=== PATIENT | male | born 1965 | race Caucasian/White ===

== ENCOUNTER 2021-11-05 21:34 | Inpatient (IN) | payer OTHER, SELFPAY ==
--- NOTE | ~2021-11-05 | XR_ITS ---
XR abdomen NG/feed tube insert DATE: 11/09/2021 18:47 INDICATION: NG tube placement TECHNIQUE: Portable AP view on 11/09/2021 at 1841 hours COMPARISON: 11/09/2021 KUB FINDINGS: An NG tube is present, the proximal side-port in the very lower chest, the NG tube extends only approximately 6 cm into the stomach. Advancement of the tube is recommended. Persistent small bowel gaseous distention is noted. IMPRESSION: NG tube at the very proximal stomach with proximal side-port in lower chest; advancement is recommended Reviewed, dictated and finalized at [facility]. Reviewed, dictated and finalized at location A. IMPRESSION: NG tube at the very proximal stomach with proximal side-port in low er chest; advancement is recommended
--- NOTE | ~2021-11-05 | CT_ITS ---
EXAMINATION: CT abdomen pelvis w con DATE: 11/10/2021 09:26 INDICATION: Small bowel obstruction. TECHNIQUE: Computed tomography (CT) of the abdomen and pelvis was performed with 100 mL Omnipaque 350 intravenous contrast. Automated exposure control and iterative reconstruction technique were employe d. The dose-length product was 423.67 mGy-cm. COMPARISON: CT abdomen and pelvis 11/05/2021 FINDINGS: The visualized portions of the lung bases demonstrate mild atelectasis. There are small ple ural effusions, right worse than left. The heart size is normal. No pericardial effusion. The nasogas tric tube tip is in the stomach. The liver and spleen are normal. There is wall thickening of the gal lbladder, which is normal in size. The pancreas, adrenal glands, and kidneys are normal. There are sc attered diverticula in the colon. There is wall thickening of the sigmoid colon. There is an abscess containing fluid and gas adjacent to the sigmoid colon that is contiguous with an abscess in the righ t paracolic gutter extending to the liver margin. The oblique craniocaudal extent of the abscess is 2 8.0 cm. On transaxial images, the abscess measures up to 11.6 x 8.0 cm. There is a smaller rim-enhanc ing abscess in the left paracolic gutter measuring 11.5 cm x 4.6 x 2.0 cm. There are multiple dilated loops of small bowel without focal transition point. There are no pathologically enlarged lymph node s. There is a small volume of ascites that is not organized. There are small foci of free intraperito jaiden gas adjacent to the liver dome. There is mild lumbar spondylosis. IMPRESSION: 1. Worsened perforated sigmoid diverticulitis with large abscess extending from the sigmoid colon to the liver via the right paracolic gutter. Abscess in the left paracolic gutter. 2. Dilated small bowel, consistent with adynamic ileus versus partial small bowel obstruction. 3. Small volume of ascites that is not organized. 4. Small pleural effusions. Reviewed, dictated and finalized at location A. IMPRESSION: 1. Worsened perforated sigmoid diverticulitis with large abscess extending from the sigmoid colon to the liver via the right paracolic gutter. Abscess in the left paracolic gutter. 2. Dilated small bowel, consistent with adynamic ileus versus partial small bow el obstruction. 3. Small volume of ascites that is not organized. 4. Small pleural effusions.
--- NOTE | ~2021-11-05 | CT_ITS ---
EXAMINATION: CT abdomen pelvis w con DATE: 11/05/2021 22:50 INDICATION: Lower abdominal pain with nausea TECHNIQUE: Computed tomography (CT) of the abdomen and pelvis was performed with 100 mL Omnipaque-350 intravenous contrast. Automated exposure control and iterative reconstruction technique were employe d. The dose-length product was 305.88 mGy-cm. COMPARISON: PET/CT dated 11/11/2006 FINDINGS: Unchanged 3 mm noncalcified granuloma at the anterobasilar right lower lobe. Heart size is normal. No pericardial or pleural effusion. Liver, gallbladder, pancreas, bilateral adrenal glands and left kid prema are normal. 7 mm low-attenuation right renal cyst. Edematous wall thickening at the sigmoid colon where there are multiple diverticula. 4.8 x 2.8 x 2.2 cm collection of gas and feculent material wit hout a well organized peripheral wall which appears to extend to a rupture in the wall of a large div erticulum at the sigmoid colon. There is surrounding inflammatory stranding and small amount of free fluid in the pelvis. No more remote free intraperitoneal gas. Small bowel is normal. Aspect within th e appendix which measures 8 mm in diameter. Trace fluid at the right paracolic gutter along side the appendix likely related to the inflammatory process in the pelvis with no more significant periappend iceal inflammatory stranding to suggest acute appendicitis. Bladder is normal. No pathologically enla rged abdominal or pelvic lymphadenopathy. Moderate left and severe right hip osteoarthritis. IMPRESSION: 1. Ruptured sigmoid diverticulitis with not yet organized-appearing collection of gas and feculent ma terial peripheral to a large ruptured sigmoid diverticulum. Reviewed, dictated and finalized at location A. IMPRESSION: 1. Ruptured sigmoid diverticulitis with not yet organized-appearing collection of gas and feculent material peripheral to a large ruptured sigmoid diverticulu m.
--- NOTE | ~2021-11-05 | US_ITS ---
EXAMINATION:US venous doppler LE BI INDICATION:Leg edema TECHNIQUE: Multiple grayscale, color flow and Doppler images of the right and left lower extremity de ep venous systems were obtained and reviewed. COMPARISON:No prior studies for comparison. FINDINGS: The common femoral, superficial femoral and popliteal veins demonstrate normal respiratory variation, augmentation and compressibility. Color flow is also seen within the posterior tibial, pe roneal, greater saphenous and profunda veins. IMPRESSION: 1: No lower extremity deep venous thrombosis. Reviewed, dictated and finalized at location A.
--- NOTE | ~2021-11-05 | CT_ITS ---
EXAMINATION: 1. CT guide absc cath placement 2. CT guide absc cath placement DATE: 11/10/2021 14:20 INDICATION: Intra-abdominal abscesses. TECHNIQUE: The procedure including the risks, benefits, and alternatives was discussed with the patie nt. Risks discussed included bleeding and infection. The patient understood the risks and benefits an d agreed to proceed. The patient was confirmed to be receiving appropriate antibiotic coverage. The skin overlying the abdomen was prepped and draped in usual sterile fashion. Anesthetic was administe red with 1% lidocaine subcutaneously. An 18 gauge trochar needle was inserted into the right abdomina l abscess with CT guidance. The needle was exchanged over a wire for 6 [place], 8 [place], 10 [place], a nd 12 [place]ayan dilators and then for a 14 [place] pigtail catheter. The catheter was stitched to the ski n, and a sterile dressing was applied. An 18 gauge trochar needle was inserted into the left abdominal abscess with CT guidance. The needle was exchanged over a wire for 6 [place], 8 [place], and 9 [place] dilators and then for an 8.5 [place] pi gtail catheter. The catheter was stitched to the skin, and a sterile dressing was applied. Automated exposure control and iterative reconstruction technique were employed. The dose-length product was 17 7.82 mGy-cm. There were no immediate complications. FINDINGS: CT images demonstrate the catheter within the right abdominal abscess. 10 mL fluid was aspi rated for testing. CT images demonstrate the catheter within the left abdominal abscess. IMPRESSION: 1. Successful CT-guided right abdominal abscess drainage. 2. 10 mL opaque, brown fluid was sent for aerobic and anaerobic cultures. 3. Successful CT-guided left abdominal abscess drainage. Reviewed, dictated and finalized at location A. IMPRESSION: 1. Successful CT-guided right abdominal abscess drainage. 2. 10 mL opaque, brown fluid was sent for aerobic and anaerobic cultures. 3. Successful CT-guided left abdominal abscess drainage.
--- NOTE | ~2021-11-05 | XR_ITS ---
XR chest 1V portable 11/12/2021 11:16 Indication: New cough. Generalized discomfort. Procedure: AP portable chest Comparison: No prior studies for comparison. Findings: Small bilateral pleural effusions. Bibasilar airspace disease and a represent atelectasis o r pneumonia. No pneumothorax. NG tube in the stomach. There is high density material overlying the le ft hilum, possibly aspirated barium. Impression: 1: Bibasilar airspace disease may represent atelectasis or pneumonia. 2: Small pleural effusions. Reviewed, dictated and finalized at location A. Impression: 1: Bibasilar airspace disease may represent atelectasis or pneumonia. 2: Small pleural effusions.
--- NOTE | ~2021-11-05 | XR_ITS ---
XR abdomen/kub 1V 11/08/2021 15:09 INDICATION: Abdominal bloating TECHNIQUE: KUB COMPARISON: 11/07/2021 FINDINGS: Bowel gas pattern is normal. There is no evidence of free air, mass, organomegaly, ascites or obstruction. No abnormal calculi are seen. The bones appear intact. There is moderate-severe bi lateral osteoarthritis of the hips. IMPRESSION: 1: No acute abdominal abnormality identified. Reviewed, dictated and finalized at location B.
--- NOTE | ~2021-11-05 | XR_ITS ---
EXAMINATION: XR abdomen/kub 1V DATE: 11/07/2021 12:45 INDICATION: Perforated diverticulitis. Worsening abdominal pain. TECHNIQUE: A supine view of the abdomen was obtained. COMPARISON: CT abdomen and pelvis 11/05/2021 FINDINGS: There are no dilated loops of bowel. There is a small volume of stool in the colon. IMPRESSION: 1. Normal bowel gas pattern. Reviewed, dictated and finalized at location A.
--- NOTE | ~2021-11-05 | XR_ITS ---
XR abdomen NG/feed tube rechec DATE: 11/09/2021 20:42 INDICATION: NG tube repositioning TECHNIQUE: Portable upright AP view on 11/09/2021 at 2034 hours COMPARISON: None FINDINGS: There is interval advancement of nasogastric gastric tube in the gastric fundus, the proxim al side-port approximately 10 cm distal to the diaphragmatic hiatus. Small bowel gaseous distention and air-fluid levels, suggesting adynamic ileus or small bowel obstruc tion. IMPRESSION: NG tube in gastric fundus Reviewed, dictated and finalized at [facility]. Reviewed, dictated and finalized at location A. IMPRESSION: NG tube in gastric fundus
--- NOTE | ~2021-11-05 | XR_ITS ---
XR abdomen/kub 1V DATE: 11/09/2021 17:05 INDICATION: Vomiting, abdominal bloating TECHNIQUE: 2 portable supine AP views of the abdomen and pelvis COMPARISON: 11/09/2021 KUB FINDINGS: There are are gas distended small bowel segments overlying the upper and midabdomen, measur ing up to approximately 3 cm diameter. The findings may be due to adynamic ileus or partial small bow el obstruction. No visceromegaly or apparent pneumoperitoneum. Associated as are intact. No significant abnormal calc ification. Bilateral prominent hip osteoarthritis, particularly severe on the right. IMPRESSION: Gas distended proximal and mid small bowel segments, which may be due to adynamic ileus o r partial small bowel obstruction Reviewed, dictated and finalized at [facility]. Reviewed, dictated and finalized at location A. IMPRESSION: Gas distended proximal and mid small bowel segments, which may be d ue to adynamic ileus or partial small bowel obstruction
--- NOTE | ~2021-11-05 | XR_ITS ---
XR abdomen/kub 1V 11/10/2021 05:32 Indication: Ileus. Small bowel obstruction. Procedure: AP supine portable view of the abdomen Comparison: Comparison to multiple prior studies sequentially, with oldest reviewed study dated 11/09. Findings: NG tube in the stomach. There is persistent mildly dilated small bowel, although improved s camila prior examinations. There is gas in the colon. Impression: 1: Improved small bowel dilation which may represent ileus or partial obstruction. Reviewed, dictated and finalized at location B. Impression: 1: Improved small bowel dilation which may represent ileus or partial obstructi on.
[2021-11-05 21:37] VITALS: BP 138/90; PULSE 62; RESP 18; TEMP 36.3; O2SAT 98
[2021-11-05 21:50] VITALS: PULSE 63; RESP 17; O2SAT 94
[2021-11-05 21:54] LABS: Basophils Absolute Auto 0.1 K/mm3 (0.0-0.1); Basophils Percent Auto 0.4 % (0.2-1.2); Eosinophils Percent Auto 0.1 % (0-4.4); Hematocrit 43.3 % (42.0-52.0); Hemoglobin 14.6 g/dL (14.0-18.0); Immature Granulocyte Absolute 0.11 K/mm3 (0.00-0.031); Immature Granulocyte Percent A 0.6 % (0-0.5); Lymphocytes Absolute Auto 1.21 K/mm3 (0.9-3.2); Lymphocytes Percent Auto 6.7 % (18.3-44.2); Mean Corpuscular HGB Conc 33.7 g/dl (32-36); Mean Corpuscular Hemoglobin 32.2 pg (26-34); Mean Corpuscular Volume 95.4 fl (80-100); Mean Platelet Volume 10.5 fl (7.4-10.4); Monocytes Absolute Auto 1.1 K/mm3 (0.1-0.6); Monocytes Percent Auto 6.3 % (2.6-8.5); Neutrophils Absolute Auto 15.6 K/mm3 (1.3-6.7); Neutrophils Percent Auto 85.9 % (45.5-73.1); Platelet Count Result 193 k/mm3 (150-375); Red Blood Count 4.54 M/mm3 (4.6-6.20); Red Cell Distribution Width 12.1 % (11.5-14.5); White Blood Count 18.2 K/mm3 (4.5-10.0)
--- NOTE | 2021-11-05 21:57 | ED.ABDPAIN ---
HPI - Abdominal Pain General Chief Complaint: Abdominal Pain Stated Complaint: abd pain Time Seen by Provider: 11/05/21 21:50 History of Present Illness HPI narrative: 56-year-old male presents the emergency room with acute onset of lower abdominal pain associated with nausea that started approximately 7 PM tonight. Pain is associated with bloating, and the inability to pass gas. Patient states the pain is constant, nonradiating, and describes it as cramping/throbbing. Denies diarrhea or constipation. Denies dysuria. Denies abdominal surgeries. Denies fever. Has had a colonoscopy 3 to 4 years ago and was told it was normal. Related Data Home Medications Medication Instructions Recorded Confirmed No Home Medications 11/06/21 11/06/21 Allergies Allergy/AdvReac Type Severity Reaction Status Date / Time No Known Allergies Allergy Verified 11/05/21 21:39 Review of Systems Review of Systems: CONSTITUTIONAL: Denies fever, chills, or sweats. EYES: Denies visual changes, redness, or discharge. ENT: Denies rhinorrhea, congestion, sore throat, or otalgia. CARDIOVASCULAR: Denies chest pain, palpitations, or edema. RESPIRATORY: Denies cough or dyspnea. GASTROINTESTINAL: Reports abdominal pain and nausea. GENITOURINARY: Denies dysuria or hematuria. SKIN: Denies rash or itching. MUSCULOSKELETAL: Denies back pain, joint pain, or myalgia. NEUROLOGIC: Denies headache, numbness, dizziness, or weakness. PSYCHIATRIC: Denies anxiety or depression. [facility] Social History Social History Smoking status: Never smoker Alcohol intake: current Drinks per week: 8 Substance use: never Substance use type: does not use Spiritual care concerns: No Exam Narrative: GENERAL: Well-appearing, well-nourished, and in no acute distress. HEAD: Normocephalic, atraumatic. EYES: PERRLA and EOMI. ENT: Nares clear, no rhinorrhea or epistaxis. Mucous membranes moist. NECK: Supple. No adenopathy or masses. No carotid bruits or JVD CHEST: Clear to auscultation. No respiratory distress. No wheezes rales or rhonchi HEART: Regular rate and rhythm. No murmur heard. Normal peripheral pulses. ABDOMEN: Soft, left lower quadrant tenderness, nondistended, normal active bowel sounds. EXTREMITIES: Normal range of motion. No edema. SKIN: Warm, dry, no rash. NEURO: No focal deficits. Alert and oriented x3. PSYCH: Normal mood and affect. Course Vital Signs Vital signs: Vital Signs Temperature 36.3 C L 11/05/21 21:37 Pulse Rate 62 11/05/21 21:37 Respiratory Rate 18 11/05/21 21:37 Blood Pressure 138/90 11/05/21 21:37 Pulse Oximetry 98 11/05/21 21:37 Temperature 37.1 C 11/06/21 01:15 Pulse Rate 75 11/06/21 01:15 Respiratory Rate 18 11/06/21 01:15 Blood Pressure 117/59 L 11/06/21 01:15 Pulse Oximetry 92 11/06/21 01:15 MDM - Abdominal Pain MDM Narrative Medical decision making narrative: 56-year-old male presented the emergency room with complaints of acute onset of lower abdominal pain associated with nausea vomiting. CBC shows a elevated white count at 18.2. CMP is unremarkable. CAT scan showed a sigmoid diverticulitis with and diverticular abscess measuring 3.7 to [address] Thakur he wishes to admit the patient to the hospitalist and will consult with him in the morning. IV Zosyn started. Patient is n.p.o. Differential Diagnosis Differential diagnosis: Likely diverticulitis Lab Data Attestation: I reviewed the patient's lab results. Result diagrams: 11/05/21 21:47 11/05/21 21:47 Labs: Lab Results 11/05/21 11/05/21 11/05/21 Range/Units 21:47 21:47 22:19 WBC 18.2 H (4.5-10.0) K/mm3 RBC 4.54 L (4.6-6.20) M/mm3 Hgb 14.6 (14.0-18.0) g/dL Hct 43.3 (42.0-52.0) % MCV 95.4 (80-100) fl MCH 32.2 (26-34) pg MCHC 33.7 (32-36) g/dl RDW 12.1 (11.5-14.5) % Plt Count 193 (15
[2021-11-05 22:00] VITALS: PULSE 65; RESP 17
[2021-11-05 22:03] LABS: Alanine Aminotransferase 30 U/L (4-50); Albumin Level 4.8 g/dL (3.5-5.1); Alkaline Phosphatase 87 U/L (38-126); Anion Gap 8 mmol/L (8-16); Aspartate Amino Transferase 35 U/L (17-59); Bilirubin,Total 0.9 mg/dL (0.2-1.3); Blood Urea Nitrogen 26 mg/dL (9-20); Calcium 9.1 mg/dL (8.4-10.2); Carbon Dioxide 28 mmol/L (22-30); Chloride 104 mmol/L (98-107); Estimated CRCL calculation 69 ml/min; Estimated Glomerular Filt Rate > 60; Glucose 110 mg/dL (65-110); Lipase 61 U/L (23-300); Potassium 3.8 mmol/L (3.4-5.0); Sodium 140 mmol/L (137-145)
[2021-11-05] MEDS: ONDANSETRON INJ 4 MG/2 ML VIAL IV PUSH (22:12)
[2021-11-05] MEDS: KETOROLAC 30 MG/ML VIAL (*BKC) IV PUSH (22:13)
[2021-11-05 22:15] VITALS: PULSE 65; RESP 23
[2021-11-05] MEDS: DICYCLOMINE HCL INJ 20 MG/2 ML VIAL IM (22:17)
[2021-11-05] MEDS: SODIUM CHLORIDE 0.9% IV 1,000 ML 999 ML IV CONT (22:19)
[2021-11-05 22:31] LABS: Add Urine Microscopic? YES; Appearance Urine Clear (Clear); Bilirubin Urine Negative (Negative); Blood Urine Negative (Negative); Color Urine Yellow (Yellow); Glucose Urine UA Negative (Negative); Ketones Urine Negative (Negative); Leukocyte Esterase Ur Negative LEU/UL (Negative); Mucus Urine Rare /lpf; Nitrate Urine Negative (Negative); Protein Urine Negative (Negative); RBC Urine 0-2 /hpf (0-2); Specific Grav Ur 1.028 (1.001-1.035); Urobilinogen Urine Negative mg/dL (<2.0); WBC Urine 0-3 /hpf
[2021-11-05] MEDS: MORPHINE SULFATE (*CRX) 4 MG/ML INJ IV PUSH (23:50)
[2021-11-06 00:16] LABS: Lactic Acid Reflex 0.7 mmol/L (0.7-2.1)
[2021-11-06 01:15] VITALS: BP 117/59; PULSE 75; RESP 18; TEMP 37.1; O2SAT 92; BMI 23.3
--- NOTE | 2021-11-06 01:28 | ADMGEN ---
This patient, Geoffrey Cevallos, was admitted to 3 [facility] Surg Room 327-01 at 0115. Patient/family oriented to hospital policies and general routines including ID bracelet, bed and alarms, visiting hours, pain management, procedures, bathroom and other care routines, personal items, smoking policy, room service/diet, and visiting hours. Information on how to activate the Rapid Response Team has been discussed. Patient/Family are encouraged to report perceived risks to care and to ask questions if they do not understand what they are told or what they should do.
--- NOTE | 2021-11-06 02:04 | PM.IMHP ---
H&P: HPI History of Present Illness Date/Time: 11/06/21 02:04 Chief Complaint: Abdominal pain Narrative: 56-year-old male who presents to the ED with acute onset lower abdominal pain associated with nausea that started about 6:00 p.m. last night. The pain was dull in quality crampy nonradiating constant since then initially started as a discomfort however increase in intensity subsequently and stayed persistent. The pain is maximally rated about 5 x 10 and density. He reports 2 or 3 bowel movements prior to that and had to strain. Otherwise no diarrhea or blood in stool. No urinary complaints. With persistent pain he came to the ED for evaluation. In the ED he was noted to [place] [address] abdomen with sigmoid diverticulitis with diverticular abscess measuring 3.7 x 2.6 cm. He is admitted for further evaluation and management. Review of Systems Review of Systems: - CONSTITUTIONAL: Denies weight loss, fever and chills. [place] a little feverish - HEENT: Denies changes in vision and hearing - RESPIRATORY: Denies SOB and cough. - CV: Denies palpitations and CP. - GI: Reports abdominal pain, nausea, denies vomiting and diarrhea. - : Denies dysuria and urinary frequency. - MSK: Denies myalgia and joint pain. - SKIN: Denies rash and pruritus. - NEUROLOGICAL: Denies headache and syncope. - PSYCHIATRIC: Denies recent changes in mood. Denies anxiety and depression. All systems reviewed & are unremarkable except as noted in HPI and below Endocrine: Endocrine: Reports fatigue PMFSH Social History Social History Smoking status: Never smoker Alcohol intake: current Drinks per week: 8 Substance use: never Substance use type: does not use Spiritual care concerns: No Meds Home Medications and Allergies Home Medications Medication Instructions Recorded Confirmed Type No Home Medications 11/06/21 11/06/21 History Allergies Allergy/AdvReac Type Severity Reaction Status Date / Time No Known Allergies Allergy Verified 11/05/21 21:39 Vital Signs Vital Signs - 24 hr 11/05/21 21:37 11/05/21 21:50 11/05/21 22:00 Temperature 97.3 F L Pulse Rate 62 63 65 Respiratory Rate 18 17 17 Blood Pressure 138/90 Pulse Oximetry 98 94 11/05/21 22:15 11/06/21 01:15 Temperature 98.7 F Pulse Rate 65 75 Respiratory Rate 23 H 18 Blood Pressure 117/59 L Pulse Oximetry 92 Exam Narrative: GENERAL: Well-appearing, well-nourished, and in no acute distress. HEAD: Normocephalic, atraumatic. EYES: PERRLA and EOMI. ENT: Nares clear, no rhinorrhea or epistaxis. Mucous membranes moist. NECK: Supple. No adenopathy or masses. No carotid bruits or JVD CHEST: Clear to auscultation. No respiratory distress. No wheezes rales or rhonchi HEART: Regular rate and rhythm. No murmur heard. Normal peripheral pulses. ABDOMEN: Soft, lower abdominal tenderness, nondistended, normal active bowel sounds. No guarding or rigidity EXTREMITIES: Normal range of motion. No edema. SKIN: Warm, dry, no rash. NEURO: No focal deficits. Alert and oriented x3. PSYCH: Normal mood and affect. H&P: Results Labs Labs: Short CBC 11/05/21 Range/Units 21:47 WBC 18.2 H (4.5-10.0) K/mm3 Hgb 14.6 (14.0-18.0) g/dL Hct 43.3 (42.0-52.0) % Plt Count 193 (150-375) k/mm3 BMP 11/05/21 21:47 Sodium 140 Potassium 3.8 Chloride 104 Carbon Dioxide 28 BUN 26 H Creatinine 1.10 Glucose 110 Calcium 9.1 Liver Function 11/05/21 Range/Units 21:47 Total Bilirubin 0.9 (0.2-1.3) mg/dL AST 35 (17-59) U/L ALT 30 (4-50) U/L Alkaline Phosphatase 87 (38-126) U/L Albumin 4.8 (3.5-5.1) g/dL Urine 11/05/21 Range/Units 22:19 Urine Color Yellow (Yellow) Urine Appearance Clear (Clear) Urine pH 5.0 (5.0-9.0) Ur Specific [place] 1.028 (1.001-1.035) Uri
[2021-11-06] MEDS: SODIUM CHLORIDE 0.9% IV 1,000 ML 100 ML IV CONT ×3 (02:54→20:11)
[2021-11-06] MEDS: ONDANSETRON INJ 4 MG/2 ML VIAL IV PUSH ×4 (03:03→20:12)
[2021-11-06] MEDS: MORPHINE SULFATE (*CRX) 2 MG/ML INJ IV PUSH ×5 (03:03→14:55)
[2021-11-06 06:00] VITALS: BP 108/51; PULSE 84; RESP 18; TEMP 37.3; O2SAT 90
[2021-11-06 08:21] LABS: Hematocrit 37.4 % (42.0-52.0); Hemoglobin 12.6 g/dL (14.0-18.0); Mean Corpuscular HGB Conc 33.7 g/dl (32-36); Mean Corpuscular Hemoglobin 32.4 pg (26-34); Mean Corpuscular Volume 96.1 fl (80-100); Mean Platelet Volume 10.7 fl (7.4-10.4); Platelet Count Result 149 k/mm3 (150-375); Red Blood Count 3.89 M/mm3 (4.6-6.20); Red Cell Distribution Width 12.2 % (11.5-14.5); White Blood Count 15.7 K/mm3 (4.5-10.0)
[2021-11-06 08:28] VITALS: O2SAT 91
[2021-11-06 08:30] LABS: Anion Gap 7 mmol/L (8-16); Blood Urea Nitrogen 21 mg/dL (9-20); Calcium 8.2 mg/dL (8.4-10.2); Carbon Dioxide 23 mmol/L (22-30); Chloride 107 mmol/L (98-107); Estimated CRCL calculation 69 ml/min; Estimated Glomerular Filt Rate > 60; Glucose 127 mg/dL (65-110); Potassium 3.7 mmol/L (3.4-5.0); Sodium 137 mmol/L (137-145)
--- NOTE | 2021-11-06 10:32 | PCCCNOTE ---
On 11/06/21, the student, [Stephany Saavedra ], provided care and [facility]. I have reviewed the student's documentation and agree with the findings.
--- NOTE | 2021-11-06 10:38 | PM.CNGS ---
Assessment and Plan Assessment and plan (1) Diverticulitis of large intestine with abscess: Qualifiers: Diverticulitis bleeding: unspecified bleeding status Qualified Code(s): K57.20 - Diverticulitis of large intestine with perforation and abscess without bleeding Code(s): K57.20 - Diverticulitis of large intestine with perforation and abscess without bleeding Status: Acute Assessment and Plan: CT scan reviewed and discussed with the patient and his in detail. He has evidence of acute sigmoid diverticulitis with a ruptured sigmoid diverticulum extending to a not yet organized collection of gas and feculent material measuring 4.8 x 2.8 cm. We would recommend to continue with broad-spectrum IV antibiotics, bowel rest, IV analgesics, and IV fluids. There is no organized fluid collection that would be amenable to percutaneous drainage at this time. Will continue to monitor with serial abdominal exams, labs, and additional imaging if needed. I have added scheduled IV Ibuprofen and adjusted his pain medication to help improve pain control. Will keep him NPO except ice chips today and repeat labs tomorrow morning. Thank you for allowing us to see the patient in consultation and we will continue to follow along with you. Additional Plan I have discussed the patient's case and plan of care with Dr. Thakur. History of Present Illness Consult details Consult date: 11/06/21 Reason for consult: other (Acute sigmoid diverticulitis with possible abscess) Requesting physician: Corby Spain APRN Narrative: This is a 56-year-old male with a history of lung cancer status post left lobectomy in 2007, who presented to the emergency department with complaints of lower abdominal pain. The patient reports initially noticing pain around noon yesterday. He reports the pain was initially mild and cramping in nature. He first associated it with gas pains. He also reports nausea and bloating, but no vomiting. He had had a small firm BM yesterday morning, therefore he thought he could also be constipated. He reports chills at home, but did not take his temperature. His abdominal pain progressively worsened throughout the evening and eventually prompted him to come into the ER for evaluation. In the ER, he had a CT scan of the abdomen and pelvis that was initially read by the virtual radiologist and suggested sigmoid diverticulitis with a 3.7 x 2.6 cm abscess and inflammatory fluid in the pelvis extending into the upper abdomen via the right pericolic gutter. Appendix also mention to be slightly thickened measuring 8 mm but containing gas, more likely reflecting mild reactive thickening to the adjacent fluid. The CT has since been read by our radiologist this morning and suggests ruptured sigmoid diverticulitis with not yet an organized appearing collection of gas and feculent material peripheral to a large ruptured sigmoid diverticulum. [place] [address] and lactic acid 0.7. The patient was admitted to the hospitalist service. We have been consulted by the ED provider for acute diverticulitis with possible abscess. The patient was started on IV Zosyn, IV fluids, and made NPO. Labs this morning show his white blood cell count has come down to 15,700. The patient is now seen on the medical floor. He does not feel his abdominal pain has improved much since admission. He reports his nausea has resolved. He is passing gas today, and reports his last BM was yesterday morning. He denies a history of diverticulitis in the past. He has had one colonoscopy in May of 2018 that revealed findings of diverticulosis with a benign rectal polyp. Review of Systems Review of Systems: All systems reviewed & are unremarkable except as noted in HPI and below Constitutional: Constitutional: Reports as per HPI, Reports chills, Denies fatigue and Denies fever(s) Eyes: Eyes: Reports no additional eye complaints ENT:
[2021-11-06] MEDS: IBUPROFEN IV 800 MG/200 ML 800 MG/200 ML BAG 400 MG IVPB ×3 (11:39→22:49)
[2021-11-06 14:00] VITALS: BP 118/62; PULSE 73; RESP 18; TEMP 37.1; O2SAT 92
--- NOTE | 2021-11-06 14:34 | PM.IMPN ---
Progress Note: A&P Assessment and Plan (1) Diverticulitis of large intestine with abscess: Qualifiers: Diverticulitis bleeding: unspecified bleeding status Qualified Code(s): K57.20 - Diverticulitis of large intestine with perforation and abscess without bleeding Code(s): K57.20 - Diverticulitis of large intestine with perforation and abscess without bleeding Status: Acute Assessment and Plan: Presented with lower abdominal pain and nausea CT on presentation showed ruptured sigmoid diverticulitis with not yet organized appearing collection of gas and feculent material peripheral to a large ruptured sigmoid diverticulum Appreciate general surgery consultation Continue IV Zosyn No evidence of sepsis. Patient is afebrile. Normal lactic. Bowel rest. NPO except ice chips Gentle IV fluids Supportive care. Continue IV analgesics as needed Continue with close monitoring with serial labs and abdominal exam Leukocytosis is improving. Continue to monitor. Trend CRP (2) History of lung cancer: Code(s): Z85.118 - Personal history of other malignant neoplasm of bronchus and lung Status: Inactive Assessment and Plan: Patient with history of lung cancer s/p lobectomy in 2007 No ongoing issues Subjective Date/time seen: 11/06/21 14:34 Interval history: Date of service: 11/06/2021 Geoffrey Cevallos is a 56-year-old male with a history of lung cancer s/p lobectomy who is seen in follow-up for diverticulitis with perforation and abscess. He states that he is feeling okay today. He endorses 3/10 lower abdominal pain when he is resting that increases up to 6/10 with movement. His last bowel movement was yesterday, he states this was a hard small stool. He denies diarrhea. No nausea, vomiting, fever, chills, dizziness, lightheadedness, weakness. Denies shortness of breath, cough, chest pain. Denies abdominal bloating or cramping. No swelling of his extremities. No dysuria or hematuria. He has no additional concerns at this time. Review of Systems Review of Systems: All systems reviewed & are unremarkable except as noted in HPI and below Exam Narrative: General: Well-nourished, well-appearing 56 year-old male, sitting up in bed, comfortable, NARD Neuro: awake, alert and oriented x4, speech clear, no focal neuro deficits noted HEENMT: normocephalic, atraumatic, EOMI, sclerae anicteric Respiratory: clear to auscultation bilaterally, nonlabored breathing Cardio: regular rate, regular rhythm with S1-S2 Abdomen: nondistended, normoactive bowel sounds, soft, mild tenderness to palpation across lower abdomen Extremities: no edema, erythema, or tenderness to palpation, DP pulses 2+ bilaterally Skin: no rashes or lesions, warm and dry Psych: appropriate mood and affect, judgment and insight intact Objective Data Vital Signs Vital Signs: Vital Signs - 24 hr 11/05/21 21:37 11/05/21 21:50 11/05/21 22:00 Temperature 97.3 F L Pulse Rate 62 63 65 Respiratory Rate 18 17 17 Blood Pressure 138/90 Pulse Oximetry 98 94 11/05/21 22:15 11/06/21 01:15 11/06/21 06:00 Temperature 98.7 F 99.2 F Pulse Rate 65 75 84 Respiratory Rate 23 H 18 18 Blood Pressure 117/59 L 108/51 L Pulse Oximetry 92 90 11/06/21 08:28 Temperature Pulse Rate Respiratory Rate Blood Pressure Pulse Oximetry 91 Intake/Output Intake/Output: Intake & Output 11/03/21 11/04/21 11/05/21 11/06/21 22:59 22:59 23:59 23:59 Intake Total 1350 Output Total 0 Balance 1350 Meds/Results Medications: Active Medications Generic Name Dose Route Start Last Admin Trade Name Freq PRN Reason Stop Dose Admin Piperacillin/Tazobactam/Dextrose 3.375 gm in 50 mls @ 100 mls/hr 11/06/21 06:00 11/06/21 13:11 Zosyn 3.375 Gm/D5w 50ml Pm IVPB Infused Q6H DEBBI Infusion Sodium Chloride 1,000 mls @ 100 mls/hr 11/06/21 02:15 11/06/21 12:41 Normal Saline Iv IV CONT 100 mls/hr .
[2021-11-06] MEDS: MORPHINE SULFATE (*CRX) 4 MG/ML INJ IV PUSH ×2 (20:11→22:55)
[2021-11-06 21:54] VITALS: BP 101/60; PULSE 66; RESP 16; TEMP 36.6; O2SAT 92
[2021-11-06] MEDS: LORazepam INJ (*CRX) 2 MG/ML VIAL 1 MG IV PUSH (23:13)
[2021-11-07] MEDS: HYDROmorphone HCL INJ (*CRX) 1 MG/ML SYR IV PUSH ×3 (01:07→17:09)
[2021-11-07 02:24] VITALS: O2SAT 92
[2021-11-07] MEDS: IBUPROFEN IV 800 MG/200 ML 800 MG/200 ML BAG 400 MG IVPB ×3 (05:10→18:10)
[2021-11-07 05:46] VITALS: BP 120/68; PULSE 82; RESP 16; TEMP 36.7; O2SAT 91
[2021-11-07 06:25] LABS: Hematocrit 37.7 % (42.0-52.0); Hemoglobin 12.6 g/dL (14.0-18.0); Immature Platelet Fraction Pct 6.1 % (0.9-11.2); Mean Corpuscular HGB Conc 33.4 g/dl (32-36); Mean Corpuscular Hemoglobin 33.1 pg (26-34); Mean Platelet Volume 11.3 fl (7.4-10.4); Platelet Count Result 148 k/mm3 (150-375); Red Blood Count 3.81 M/mm3 (4.6-6.20); Red Cell Distribution Width 12.3 % (11.5-14.5); White Blood Count 3.7 K/mm3 (4.5-10.0)
[2021-11-07 06:42] LABS: Anion Gap 6 mmol/L (8-16); Blood Urea Nitrogen 16 mg/dL (9-20); Calcium 8.1 mg/dL (8.4-10.2); Carbon Dioxide 26 mmol/L (22-30); Chloride 105 mmol/L (98-107); Estimated CRCL calculation 75 ml/min; Estimated Glomerular Filt Rate > 60; Glucose 105 mg/dL (65-110); Potassium 3.7 mmol/L (3.4-5.0); Sodium 137 mmol/L (137-145)
[2021-11-07 07:13] LABS: CRP 34.4 mg/dL (<1.0)
[2021-11-07 07:40] LABS: Band Neutrophils Percent 40 % (0-6); Lymphocytes Absolute Manual 0.48 K/mm3 (1.1-4.5); Metamyelocytes Percent 3 %; Monocytes Absolute Manual 0.14 K/mm3 (0.1-0.90); Monocytes Percent Manual 4 % (3-9); Neutrophils Absolute Manual 2.96 K/mm3 (1.3-6.7); Neutrophils Percent Manual 40 % (46-73); Total Cells Counted 100
[2021-11-07] MEDS: SODIUM CHLORIDE 0.9% IV 1,000 ML 100 ML IV CONT ×2 (09:24→22:42)
--- NOTE | 2021-11-07 12:39 | PM.PNGS ---
Progress Note: A&P Assessment and Plan (1) Diverticulitis of large intestine with abscess: Qualifiers: Diverticulitis bleeding: unspecified bleeding status Qualified Code(s): K57.20 - Diverticulitis of large intestine with perforation and abscess without bleeding Code(s): K57.20 - Diverticulitis of large intestine with perforation and abscess without bleeding Status: Acute Assessment and Plan: Patient continues to have abdominal pain today that is more generalized and he feels is worse. He is more distended and tender on exam today as well. Will order a KUB now Continue bowel rest, IV fluids, and IV Zosyn I adjusted his pain medication to Dilaudid to try and help improve pain control Repeat labs again tomorrow morning On the CT reading from the virtual radiologist and our Radiologist, there was a question of a small abscess versus fecal material adjacent to the sigmoid diverticulitis. Discussed with the patient that if he has fecal spillage, then he could still require surgery with the risk of an ostomy, but we will continue to try and treat with medical management and close monitoring for now. If he does not show improvement in the next 1-2 days, could also consider repeating a CT scan of the abdomen and pelvis. Additional Plan I have discussed the patient's case and plan of care with Dr. Phelps. Subjective Subjective Date/Time Seen: 11/07/21 12:39 Patient reports: still having pain, no flatus, no bowel movement and afebrile Interval history: Patient seen and examined today. He reports having two episodes of severe pain, once yesterday evening and one last night. He reports that the passed gas one time last night and the abdominal pain became more severe at that time. Since then, he has not been passing any gas and has not had a bowel movement. He reports his abdominal pain seems worse than yesterday and now is more generalized than localized to the lower abdomen. He points across his entire abdomen when specifying the location of his pain. He also reports feeling more bloated today. Denies nausea or vomiting. Review of Systems Review of Systems: All systems reviewed & are unremarkable except as noted in HPI and below Exam Const: General: no acute distress and awake Orientation/consciousness: patient oriented x3 GI: Inspection: distended GI Palp: Yes Soft to palpation, Yes Tenderness to palpation present (GI) (more diffusely tender today but still worse in lower abdomen), Yes Guarding due to palpation present (GI) (across lower abdomen) and No Rebound tenderness present Auscultation: Hypoactive bowel sounds present Neuro: General: moves all extremities and no focal motor deficits Extrem: General: normal to inspection Psych: Insight: Good insight present (Psych) Judgement: Good judgement present (Psych) Objective Data Vital Signs Vital Signs: Vital Signs - 24 hr 11/06/21 14:00 11/06/21 21:54 11/07/21 02:24 Temperature 98.8 F 97.8 F Pulse Rate 73 66 Respiratory Rate 18 16 Blood Pressure 118/62 101/60 Pulse Oximetry 92 92 92 11/07/21 05:46 Temperature 98.1 F Pulse Rate 82 Respiratory Rate 16 Blood Pressure 120/68 Pulse Oximetry 91 Intake/Output Intake/Output: Intake & Output 11/04/21 11/05/21 11/06/21 11/07/21 22:59 23:59 23:59 23:59 Intake Total 2900 1100 Output Total 250 Balance 2650 1100 Meds/Results Medications: Active Medications Generic Name Dose Route Start Last Admin Trade Name Freq PRN Reason Stop Dose Admin Hydromorphone HCl 1 mg 11/07/21 12:01 Hydromorphone Hcl Inj (*Crx) 1 Mg/Ml Syr IV PUSH Q2H PRN Pain Rated 7-10 Hydromorphone HCl 0.5 mg 11/07/21 11:59 Hydromorphone Hcl Inj (*Crx) 1 Mg/Ml Syr IV PUSH Q2H PRN Pain Rated 4-6 Piperacillin/Tazobactam/Dextrose 3.375 gm in 50 mls @ 100 mls/hr 11/06/21 06:00 11/07/21 12:03 Zosyn 3.375 Gm/D5w 50ml Pm IVPB 100 mls/hr Q6H DEBBI Administration Sodi
[2021-11-07 14:00] VITALS: BP 122/74; PULSE 85; RESP 20; TEMP 36.9; O2SAT 100
[2021-11-07 14:24] VITALS: O2SAT 92
--- NOTE | 2021-11-07 14:29 | PM.IMPN ---
Progress Note: A&P Assessment and Plan (1) Diverticulitis of large intestine with abscess: Qualifiers: Diverticulitis bleeding: unspecified bleeding status Qualified Code(s): K57.20 - Diverticulitis of large intestine with perforation and abscess without bleeding Code(s): K57.20 - Diverticulitis of large intestine with perforation and abscess without bleeding Status: Acute Assessment and Plan: Presented with lower abdominal pain and nausea CT on presentation showed ruptured sigmoid diverticulitis with not yet organized appearing collection of gas and feculent material peripheral to a large ruptured sigmoid diverticulum Appreciate general surgery consultation Continue IV Zosyn No evidence of sepsis. Patient is afebrile. Normal lactic. Bowel rest. NPO except ice chips Gentle IV fluids Supportive care. Continue IV analgesics as needed Continue with close monitoring with serial labs and abdominal exam Leukocytosis is improving. Continue to monitor. Trend CRP X-ray with normal bowel gas no signs of perforation or bowel obstruction noted 11/07/2021 (2) History of lung cancer: Code(s): Z85.118 - Personal history of other malignant neoplasm of bronchus and lung Status: Inactive Assessment and Plan: Patient with history of lung cancer s/p lobectomy in 2007 No ongoing issues Additional Plan # Leukocytosis blood cultures has been obtained in the ER. IV Zosyn. No clinical signs of sepsis. Blood culture has been negative to date # DVT prophylaxis SCDs ambulatory # code status full code Subjective Date/time seen: 11/07/21 14:29 Interval history: Geoffrey Cevallos is a 56-year-old male with a history of lung cancer s/p lobectomy who is seen in follow-up for diverticulitis with perforation and abscess. 11/07/2021: Patient had an episode of increased pain last night after he had passed gas. The pain was severe. He was not taking any pain medication and currently the pain is better since he received some pain medication. Denies any nausea vomiting. Has not had any bowel movement. Review of Systems Review of Systems: All systems reviewed & are unremarkable except as noted in HPI and below Exam Narrative: General: Well-nourished, well-appearing comfortable, NARD Neuro: awake, alert and oriented x4, speech clear, no focal neuro deficits noted HEENMT: normocephalic, atraumatic, EOMI, sclerae anicteric Respiratory: clear to auscultation bilaterally, nonlabored breathing Cardio: regular rate, regular rhythm with S1-S2 Abdomen: nondistended, normoactive bowel sounds, soft, mild tenderness to palpation across lower abdomen Extremities: no edema, erythema, or tenderness to palpation, DP pulses 2+ bilaterally Skin: no rashes or lesions, warm and dry Psych: appropriate mood and affect, judgment and insight intact Objective Data Vital Signs Vital Signs: Vital Signs - 24 hr 11/06/21 21:54 11/07/21 02:24 11/07/21 05:46 Temperature 97.8 F 98.1 F Pulse Rate 66 82 Respiratory Rate 16 16 Blood Pressure 101/60 120/68 Pulse Oximetry 92 92 91 11/07/21 14:24 Temperature Pulse Rate Respiratory Rate Blood Pressure Pulse Oximetry 92 Intake/Output Intake/Output: Intake & Output 11/04/21 11/05/21 11/06/21 11/07/21 22:59 23:59 23:59 23:59 Intake Total 2900 1550 Output Total 250 Balance 2650 1550 Meds/Results Medications: Active Medications Generic Name Dose Route Start Last Admin Trade Name Freq PRN Reason Stop Dose Admin Hydromorphone HCl 1 mg 11/07/21 12:01 Hydromorphone Hcl Inj (*Crx) 1 Mg/Ml Syr IV PUSH Q2H PRN Pain Rated 7-10 Hydromorphone HCl 0.5 mg 11/07/21 11:59 Hydromorphone Hcl Inj (*Crx) 1 Mg/Ml Syr IV PUSH Q2H PRN Pain Rated 4-6 Piperacillin/Tazobactam/Dextrose 3.375 gm in 50 mls @ 100 mls/hr 11/06/21 06:00 11/07/21 12:33 Zosyn 3.375 Gm/D5w 50ml Pm IVPB Infused Q6H [facility]fusion
[2021-11-07] MEDS: BISACODYL 10 MG SUPPOSITORY RECTAL (20:38)
[2021-11-07 21:59] VITALS: BP 111/68; PULSE 75; RESP 16; TEMP 36.5; O2SAT 97
[2021-11-08] MEDS: IBUPROFEN IV 800 MG/200 ML 800 MG/200 ML BAG 400 MG IVPB ×5 (00:22→23:09)
[2021-11-08 05:44] VITALS: BP 114/72; PULSE 74; RESP 16; TEMP 36.7; O2SAT 92
[2021-11-08 06:12] LABS: Hematocrit 34.7 % (42.0-52.0); Hemoglobin 11.7 g/dL (14.0-18.0); Mean Corpuscular HGB Conc 33.7 g/dl (32-36); Mean Corpuscular Hemoglobin 32.2 pg (26-34); Mean Corpuscular Volume 95.6 fl (80-100); Mean Platelet Volume 10.9 fl (7.4-10.4); Platelet Count Result 136 k/mm3 (150-375); Red Blood Count 3.63 M/mm3 (4.6-6.20); White Blood Count 4.9 K/mm3 (4.5-10.0)
[2021-11-08 06:25] LABS: Anion Gap 5 mmol/L (8-16); Blood Urea Nitrogen 18 mg/dL (9-20); Calcium 8.4 mg/dL (8.4-10.2); Carbon Dioxide 27 mmol/L (22-30); Chloride 104 mmol/L (98-107); Estimated CRCL calculation 69 ml/min; Estimated Glomerular Filt Rate > 60; Glucose 108 mg/dL (65-110); Potassium 3.5 mmol/L (3.4-5.0); Sodium 136 mmol/L (137-145)
[2021-11-08 06:59] LABS: Band Neutrophils Percent 17 % (0-6); Lymphocytes Absolute Manual 0.29 K/mm3 (1.1-4.5); Metamyelocytes Percent 1 %; Monocytes Absolute Manual 0.14 K/mm3 (0.1-0.90); Monocytes Percent Manual 3 % (3-9); Neutrophils Absolute Manual 4.41 K/mm3 (1.3-6.7); Neutrophils Percent Manual 73 % (46-73); Total Cells Counted 100
[2021-11-08 07:01] LABS: Anisocytosis 1+ (NORMAL); Poikilocytosis 1+ (NORMAL)
[2021-11-08] MEDS: polyethylene glycoL 3350 17 GM POWD.PACK PO ×2 (09:46→16:55)
[2021-11-08] MEDS: BISACODYL 10 MG SUPPOSITORY RECTAL ×2 (09:47→16:56)
[2021-11-08] MEDS: SODIUM CHLORIDE 0.9% IV 1,000 ML 100 ML IV CONT (09:52)
--- NOTE | 2021-11-08 10:27 | PM.PNGS ---
Progress Note: A&P Assessment and Plan (1) Diverticulitis of large intestine with abscess: Qualifiers: Diverticulitis bleeding: unspecified bleeding status Qualified Code(s): K57.20 - Diverticulitis of large intestine with perforation and abscess without bleeding Code(s): K57.20 - Diverticulitis of large intestine with perforation and abscess without bleeding Status: Acute Assessment and Plan: Abdominal pain improved today. WBC remains normal and he has been afebrile. He is also less tender on exam today. Main complaint is bloating. KUB yesterday showed a normal bowel gas pattern and no free intraperitoneal air. No BM since admission, even after dulcolax supp yesterday. Will start Miralax and give another dulcolax supp today. Continue clear liquids Continue IV Zosyn Repeat labs tomorrow Additional Plan I have discussed the patient's case and plan of care with Dr. Phelps. Subjective Subjective Date/Time Seen: 11/08/21 10:00 Patient reports: feels better, pain is less, tolerating liquids well, voiding w/o difficulty, no flatus, no bowel movement and afebrile Interval history: Patient seen and examined. He states his abdominal pain is still throughout his entire abdomen, but improved from yesterday. He is still feeling bloated and reports most of his abdominal discomfort is from the bloating. He denies nausea or vomiting. He denies any flatus or BM since his dulcolax suppository yesterday. Review of Systems Review of Systems: All systems reviewed & are unremarkable except as noted in HPI and below Exam Const: General: no acute distress and awake Orientation/consciousness: patient oriented x3 GI: Inspection: distended and no visible herniation GI Palp: Yes Soft to palpation, Yes Tenderness to palpation present (GI) (tender across lower abd, less tender today), No Guarding due to palpation present (GI) and No Rebound tenderness present Auscultation: Hypoactive bowel sounds present (very hypoactive) Neuro: General: moves all extremities and no focal motor deficits Extrem: General: normal to inspection Psych: Insight: Good insight present (Psych) Judgement: Good judgement present (Psych) Objective Data Vital Signs Vital Signs: Vital Signs - 24 hr 11/07/21 14:00 11/07/21 14:24 11/07/21 21:59 Temperature 98.4 F 97.7 F Pulse Rate 85 75 Respiratory Rate 20 16 Blood Pressure 122/74 111/68 Pulse Oximetry 100 92 97 11/08/21 05:44 Temperature 98.0 F Pulse Rate 74 Respiratory Rate 16 Blood Pressure 114/72 Pulse Oximetry 92 Intake/Output Intake/Output: Intake & Output 11/05/21 11/06/21 11/07/21 11/08/21 23:59 23:59 23:59 23:59 Intake Total 2900 3340 2500 Output Total 250 1400 Balance 2650 1940 2500 Meds/Results Medications: Active Medications Generic Name Dose Route Start Last Admin Trade Name Freq PRN Reason Stop Dose Admin Bisacodyl 10 mg 11/07/21 19:27 11/08/21 09:47 Bisacodyl 10 Mg Suppository RECTAL 10 mg QAM PRN Administration Constipation Hydromorphone HCl 1 mg 11/07/21 12:01 11/07/21 17:09 Hydromorphone Hcl Inj (*Crx) 1 Mg/Ml Syr IV PUSH 1 mg Q2H PRN Administration Pain Rated 7-10 Hydromorphone HCl 0.5 mg 11/07/21 11:59 Hydromorphone Hcl Inj (*Crx) 1 Mg/Ml Syr IV PUSH Q2H PRN Pain Rated 4-6 Piperacillin/Tazobactam/Dextrose 3.375 gm in 50 mls @ 100 mls/hr 11/06/21 06:00 11/08/21 07:35 Zosyn 3.375 Gm/D5w 50ml Pm IVPB Infused Q6H DEBBI Infusion Sodium Chloride 1,000 mls @ 100 mls/hr 11/06/21 02:15 11/08/21 09:52 Normal Saline Iv IV CONT 100 mls/hr .Q10H DEBBI Administration Ibuprofen 800 mg in 200 mls @ 400 mls/hr 11/06/21 10:45 11/08/21 07:35 Caldolor 800 Mg/200 Ml IVPB Infused Q6HR DEBBI Infusion Acetaminophen 1,000 mg in 100 mls @ 400 mls/hr 11/07/21 11:59 11/07/21 20:55 Ofirmev 1,000 Mg Ivpb IVPB 11/08/21 11:58 Infused Q6H PRN Infusion Pain Rated 1-3
--- NOTE | 2021-11-08 10:39 | PC.NURSE ---
To GI Lab per [ shiver], IV [ locked]. Report given to [Natali ].
[2021-11-08] MEDS: ONDANSETRON INJ 4 MG/2 ML VIAL IV PUSH (13:36)
[2021-11-08 13:40] VITALS: BP 135/76; PULSE 96; RESP 16; TEMP 37.1; O2SAT 94
--- NOTE | 2021-11-08 14:42 | PM.IMPN ---
Progress Note: A&P Assessment and Plan (1) Diverticulitis of large intestine with abscess: Qualifiers: Diverticulitis bleeding: unspecified bleeding status Qualified Code(s): K57.20 - Diverticulitis of large intestine with perforation and abscess without bleeding Code(s): K57.20 - Diverticulitis of large intestine with perforation and abscess without bleeding Status: Acute Assessment and Plan: Presented with lower abdominal pain and nausea CT on presentation showed ruptured sigmoid diverticulitis with not yet organized appearing collection of gas and feculent material peripheral to a large ruptured sigmoid diverticulum Appreciate general surgery consultation Continue IV Zosyn No evidence of sepsis. Patient is afebrile. WBC has normalized. Normal lactic. Continue clear liquid diet Supportive care. Continue IV analgesics as needed Trend CRP Abdominal x-ray showed normal bowel gas pattern on 11/07 There was evidence of small volume of stool in the colon on x-ray. Patient has not had a bowel movement despite Dulcolax suppository. Repeat suppository and start MiraLax per General surgery recommendations Given patient's increased bloating and discomfort, will repeat KUB this afternoon (2) Bacteremia: Code(s): R78.81 - Bacteremia Status: Acute Assessment and Plan: 1 of 2 preliminary blood cultures with growth of Bacteroides vulgatus As above, no evidence for sepsis Continue IV Zosyn Await final blood culture results (3) History of lung cancer: Code(s): Z85.118 - Personal history of other malignant neoplasm of bronchus and lung Status: Inactive Assessment and Plan: Patient with history of lung cancer s/p lobectomy in 2007 No ongoing issues Subjective Date/time seen: 11/08/21 14:42 Interval history: Date of service: 11/08/2021 Geoffrey Cevallos is a 56-year-old male with a history of lung cancer s/p lobectomy who is seen in follow-up for diverticulitis with perforation and abscess. His is at the bedside with him. States he is not feeling very well this afternoon. He was feeling well this morning was able to tolerate clear liquids for breakfast however this afternoon he noticed increase bloating and became nauseous with complaints of chills. Denied fevers or sweats. Reported a poor appetite. He has not been able to pass gas. He has been getting up and ambulating about the room. He denies dizziness, lightheadedness, weakness. No shortness breath, cough, or chest pain. He feels that his ankles appear distal little bit swollen today. He has no additional concerns. I re-evaluated the patient later this afternoon and he was starting to feel a bit better. His nausea had subsided with antiemetics. He was still complaining of bloating but it was not as significant. Review of Systems Review of Systems: All systems reviewed & are unremarkable except as noted in HPI and below Exam Narrative: General: Well-nourished, well-appearing comfortable, NARD Neuro: awake, alert and oriented x4, speech clear, no focal neuro deficits noted HEENMT: normocephalic, atraumatic, EOMI, sclerae anicteric Respiratory: clear to auscultation bilaterally, nonlabored breathing Cardio: regular rate, regular rhythm with S1-S2 Abdomen: Protuberant, hypoactive bowel sounds, firm, mild tenderness to palpation across lower abdomen Extremities: no edema, erythema, or tenderness to palpation, DP pulses 2+ bilaterally Skin: no rashes or lesions, warm and dry Psych: appropriate mood and affect, judgment and insight intact Objective Data Vital Signs Vital Signs: Vital Signs - 24 hr 11/07/21 21:59 11/08/21 05:44 11/08/21 13:40 Temperature 97.7 F 98.0 F 98.7 F Pulse Rate 75 74 96 Respiratory Rate 16 16 16 Blood Pressure 111/68 114/72 135/76 Pulse Oximetry 97 92 94 Intake/Output Intake/Output: Intake & Output 11/05/21 11/06/21 11/07/21 11/08/21 23:
[2021-11-08 21:02] VITALS: O2SAT 93
[2021-11-08] MEDS: HYDROmorphone HCL INJ (*CRX) 1 MG/ML SYR IV PUSH (21:33)
[2021-11-08 21:35] VITALS: BP 141/80; PULSE 81; RESP 16; TEMP 36.5; O2SAT 94
[2021-11-08] MEDS: SODIUM CHLORIDE 0.9% IV 1,000 ML 70 ML IV CONT (23:52)
[2021-11-09] MEDS: HYDROmorphone HCL INJ (*CRX) 1 MG/ML SYR IV PUSH (02:21)
[2021-11-09] MEDS: IBUPROFEN IV 800 MG/200 ML 800 MG/200 ML BAG 400 MG IVPB (05:22)
[2021-11-09 05:57] VITALS: BP 110/70; PULSE 78; RESP 18; TEMP 36.5; O2SAT 91
[2021-11-09 06:50] LABS: Hematocrit 34.1 % (42.0-52.0); Hemoglobin 11.2 g/dL (14.0-18.0); Mean Corpuscular HGB Conc 32.8 g/dl (32-36); Mean Corpuscular Hemoglobin 31.3 pg (26-34); Mean Corpuscular Volume 95.3 fl (80-100); Mean Platelet Volume 10.8 fl (7.4-10.4); Platelet Count Result 153 k/mm3 (150-375); Red Blood Count 3.58 M/mm3 (4.6-6.20); Red Cell Distribution Width 11.9 % (11.5-14.5); White Blood Count 7.4 K/mm3 (4.5-10.0)
[2021-11-09 07:29] LABS: Anion Gap 5 mmol/L (8-16); Blood Urea Nitrogen 15 mg/dL (9-20); CRP 32.9 mg/dL (<1.0); Calcium 8.2 mg/dL (8.4-10.2); Carbon Dioxide 28 mmol/L (22-30); Chloride 104 mmol/L (98-107); Estimated CRCL calculation 75 ml/min; Estimated Glomerular Filt Rate > 60; Glucose 111 mg/dL (65-110); Potassium 3.2 mmol/L (3.4-5.0); Sodium 137 mmol/L (137-145)
[2021-11-09 07:55] LABS: Alanine Aminotransferase 20 U/L (4-50); Albumin Level 2.8 g/dL (3.5-5.1); Alkaline Phosphatase 95 U/L (38-126); Aspartate Amino Transferase 30 U/L (17-59); Bilirubin Direct 0.2 mg/dL (0-0.3); Bilirubin,Total 2.1 mg/dL (0.2-1.3)
[2021-11-09] MEDS: polyethylene glycoL 3350 17 GM POWD.PACK PO ×2 (08:21→16:24)
[2021-11-09] MEDS: BISACODYL 10 MG SUPPOSITORY RECTAL (08:21)
--- NOTE | 2021-11-09 09:09 | PM.PNGS ---
Progress Note: A&P Assessment and Plan (1) Diverticulitis of large intestine with abscess: Qualifiers: Diverticulitis bleeding: unspecified bleeding status Qualified Code(s): K57.20 - Diverticulitis of large intestine with perforation and abscess without bleeding Code(s): K57.20 - Diverticulitis of large intestine with perforation and abscess without bleeding Status: Acute Assessment and Plan: Abdominal pain improved today. WBC remains normal and he has been afebrile. He is also less tender on exam today, but still slightly bloated. Main complaint is bloating. KUB yesterday showed a normal bowel gas pattern and no free intraperitoneal air. Will continue Miralax and give another dulcolax supp today. Advanced to full liquids today and have dietitian discuss low-fiber diet with patient. (He will convert to a high-fiber diet after he finished his course of antibiotics and sees me as an outpatient). Continue IV Zosyn until just before going home. We will add metronidazole po today to see how he tolerates it. (planning then on discharge to go with Levaquin and metronidazole.) Potassium slightly low so will supplement p.o.. Will see how patient tolerates advancement of diet. Get dietitian consult for dietary instruction and then hopefully plan to discharge after breakfast tomorrow if doing well with decreased pain. (Have ordered p.o. pain medication and stopped Dilaudid). Subjective Subjective Date/Time Seen: 11/09/21 09:09 Patient is sitting up in bed when I entered the room. States that his pain is improved. The last time he took IV pain medicine was 9:30 p.m. last night. He has been up walking the halls. Still has not had a bowel movement other than a small amount of semi-liquid stool after 1 of the Dulcolax suppositories. Tolerating clear liquids okay. States he still feels somewhat bloated. Review of Systems Review of Systems: All systems reviewed & are unremarkable except as noted in HPI and below Constitutional: Constitutional: Reports as per HPI, Reports chills, Denies fatigue and Denies fever(s) Eyes: Eyes: Reports no additional eye complaints ENT: Reports system reviewed and no additional complaints, except as documented Cardiovascular: Cardiovascular: Reports no additional cardiovascular complaints, Denies chest pain, Denies leg edema and Denies dyspnea Respiratory: Respiratory: Reports no additional respiratory complaints, Denies cough and Denies dyspnea Gastrointestinal: Gastrointestinal: Reports as per HPI, Reports abdominal pain (Mild, controlled with ibuprofen.), Denies nausea and Denies vomiting Genitourinary: Genitourinary: Reports no additional male genitourinary complaints and Denies dysuria Musculoskeletal: Musculoskeletal: Reports no additional musculoskeletal complaints, Denies joint swelling, Denies numbness and Denies tingling Neurologic: Reports system reviewed and no additional complaints, except as documented, Denies focal weakness, Denies numbness and Denies tingling Psychiatric: Psychiatric: Denies anxiety and Denies depression Endocrine: Endocrine: Denies fatigue Exam Const: General: comfortable, no acute distress, alert and awake Nutritional Appearance: average body habitus Orientation/consciousness: patient oriented x3 HENMT: Head: normocephalic and atraumatic Ears: hearing grossly normal bilaterally and external ears normal Mouth: Yes moist mucous membranes Eyes: General: appearance normal, both eyes and all related structures Sclera: sclerae normal Pupils: Equal, round and reactive pupils present EOM: EOMs intact bilaterally Neck: Neck: normal visual inspection and full ROM Resp: Effort & Inspection: no respiratory distress Auscultation: clear to auscultation bilaterally Cardio: Rate: regular rate Rhythm: regular rhythm Heart sounds: S1 normal heart sound present and S2 normal heart sound present GI: Inspection: normal to inspection, distended, n
[2021-11-09] MEDS: POTASSIUM CHLORIDE 20 MEQ TABLET 40 MEQ PO (09:25)
--- NOTE | 2021-11-09 11:33 | PM.IMPN ---
Progress Note: A&P Assessment and Plan (1) Diverticulitis of large intestine with abscess: Qualifiers: Diverticulitis bleeding: unspecified bleeding status Qualified Code(s): K57.20 - Diverticulitis of large intestine with perforation and abscess without bleeding Code(s): K57.20 - Diverticulitis of large intestine with perforation and abscess without bleeding Status: Acute Assessment and Plan: Presented with lower abdominal pain and nausea CT on presentation showed ruptured sigmoid diverticulitis with not yet organized appearing collection of gas and feculent material peripheral to a large ruptured sigmoid diverticulum Appreciate general surgery consultation Continue IV Zosyn P.o. Flagyl added today per General surgery No evidence of sepsis. Patient is afebrile. WBC has normalized. Normal lactic. Advanced to full liquid diet Supportive care. P.o. analgesics and antiemetics available as needed Abdominal x-ray showed normal bowel gas pattern on 11/07 There was evidence of small volume of stool in the colon on x-ray. Patient has not had a bowel movement during admission. Continue MiraLax and Dulcolax suppository (2) Bacteremia: Code(s): R78.81 - Bacteremia Status: Acute Assessment and Plan: 1 of 2 preliminary blood cultures with growth of Bacteroides vulgatus As above, no evidence for sepsis Continue IV Zosyn Routine susceptibility not performed (3) History of lung cancer: Code(s): Z85.118 - Personal history of other malignant neoplasm of bronchus and lung Status: Inactive Assessment and Plan: Patient with history of lung cancer s/p lobectomy in 2007 No ongoing issues Subjective Date/time seen: 11/09/21 11:33 Interval history: Date of service: 11/09/2021 Geoffrey Cevallos is a 56-year-old male with a history of lung cancer s/p lobectomy who is seen in follow-up for diverticulitis with perforation and abscess. He is not feeling well. He states that he is having ?a bad spell right now that has been going on for about half an hour. He states that his abdominal bloating continues to increase in he feels that it is ?going to explode.? He rates his pain as 5/10. This morning he was feeling better and he was able to tolerate liquids including apple juice, broth, and water. He was also able to walk around the hallways for a while. Now he feels too full to take anything in. He cannot take a deep breath due to the bloating. He denies fevers or chills but does endorse feeling a bit shaky. No nausea at this time. No vomiting. Has not had a bowel movement. He has no additional concerns. Review of Systems Review of Systems: All systems reviewed & are unremarkable except as noted in HPI and below Exam Narrative: General: Well-nourished 56-year-old male, sitting in a chair, appears slightly uncomfortable, NARD Neuro: awake, alert and oriented x4, speech clear, no focal neuro deficits noted HEENMT: normocephalic, atraumatic, EOMI, sclerae anicteric Respiratory: clear to auscultation bilaterally, nonlabored breathing Cardio: regular rate, regular rhythm with S1-S2 Abdomen: Protuberant, hypoactive bowel sounds, firm, mild tenderness to palpation across lower abdomen Extremities: no edema, erythema, or tenderness to palpation, DP pulses 2+ bilaterally Skin: no rashes or lesions, warm and dry Psych: appropriate mood and affect, judgment and insight intact Objective Data Vital Signs Vital Signs: Vital Signs - 24 hr 11/08/21 13:40 11/08/21 21:02 11/08/21 21:35 Temperature 98.7 F 97.7 F Pulse Rate 96 81 Respiratory Rate 16 16 Blood Pressure 135/76 141/80 H Pulse Oximetry 94 93 94 11/09/21 05:57 Temperature 97.7 F Pulse Rate 78 Respiratory Rate 18 Blood Pressure 110/70 Pulse Oximetry 91 Intake/Output Intake/Output: Intake & Output 11/06/21 11/07/21 11/08/21 11/09/21 23:59 23:59 23:59 23:59 Intake Total 2900 33
[2021-11-09] MEDS: HYDROcodone/acetaminophen (*CRX) 5-325 MG TABLET 1 TAB PO (12:01)
[2021-11-09] MEDS: ONDANSETRON INJ 4 MG/2 ML VIAL IV PUSH (12:01)
[2021-11-09] MEDS: IBUPROFEN 600 MG TABLET PO (12:01)
[2021-11-09 13:47] VITALS: BP 136/89; PULSE 89; RESP 18; TEMP 36.6; O2SAT 95
--- NOTE | 2021-11-09 14:21 | PC.NURSE ---
pt's , Susan, came to the nurses' station wanting an update on pt. Pt also called down at the same time stating he was having uncontrollable pain and it was increasing. I had administered everything available to him approximately 1 hour prior and there was nothing else available for 4+ hours. I contacted the hospitalist, Laverne Dominique, and informed her of this and she directed to call Dr. Phelps regarding the pain control plan. I contacted Dr. Phelps's off and was informed that ARMINDA Agustin was on the floor so their office would reach her and have her speak with the pt.
[2021-11-09] MEDS: SODIUM CHLORIDE 0.9% IV 1,000 ML 70 ML IV CONT (16:22)
[2021-11-09] MEDS: MORPHINE SULFATE (*CRX) 2 MG/ML INJ IV PUSH ×4 (16:23→22:43)
[2021-11-09] MEDS: METOCLOPRAMIDE HCL 5 MG TABLET PO (16:24)
[2021-11-09] MEDS: metroNIDAZOLE 250 MG TABLET 500 MG PO (16:24)
[2021-11-09] MEDS: PANTOPRAZOLE SODIUM IV 40 MG VIAL IV PUSH (21:32)
[2021-11-09 21:58] VITALS: BP 149/86; PULSE 91; RESP 16; TEMP 37.7; O2SAT 92
--- NOTE | 2021-11-09 22:03 | PC.NURSE ---
[id number] Informed Stepan Morales NP of [facility] results, states ok to connect NG tube to low intermittent suction.
[2021-11-09] MEDS: metroNIDAZOLE 500 MG/ISO 100ML 500 MG/100 ML BAG 100 MG IVPB (22:38)
[2021-11-10] MEDS: MORPHINE SULFATE (*CRX) 2 MG/ML INJ IV PUSH ×8 (00:56→22:56)
[2021-11-10] MEDS: metroNIDAZOLE 500 MG/ISO 100ML 500 MG/100 ML BAG 100 MG IVPB ×3 (05:39→21:14)
[2021-11-10] MEDS: SODIUM CHLORIDE 0.9% IV 1,000 ML 70 ML IV CONT ×2 (05:45→22:57)
[2021-11-10 05:56] VITALS: BP 139/85; PULSE 87; RESP 16; TEMP 36.9; O2SAT 92
[2021-11-10 06:38] LABS: Hematocrit 34.2 % (42.0-52.0); Hemoglobin 11.5 g/dL (14.0-18.0); Mean Corpuscular HGB Conc 33.6 g/dl (32-36); Mean Corpuscular Hemoglobin 31.8 pg (26-34); Mean Corpuscular Volume 94.5 fl (80-100); Mean Platelet Volume 10.3 fl (7.4-10.4); Platelet Count Result 178 k/mm3 (150-375); Red Blood Count 3.62 M/mm3 (4.6-6.20); Red Cell Distribution Width 12.3 % (11.5-14.5); White Blood Count 8.5 K/mm3 (4.5-10.0)
--- NOTE | 2021-11-10 06:44 | PC.NURSE ---
Nasogastric tube to low intermittent suction drained 800 ml of dark green content this shift.
[2021-11-10 06:56] LABS: Alanine Aminotransferase 22 U/L (4-50); Alkaline Phosphatase 115 U/L (38-126); Anion Gap 7 mmol/L (8-16); Aspartate Amino Transferase 29 U/L (17-59); Bilirubin,Total 2.1 mg/dL (0.2-1.3); Blood Urea Nitrogen 16 mg/dL (9-20); Calcium 8.2 mg/dL (8.4-10.2); Carbon Dioxide 28 mmol/L (22-30); Chloride 104 mmol/L (98-107); Estimated CRCL calculation 75 ml/min; Estimated Glomerular Filt Rate > 60; Glucose 123 mg/dL (65-110); Potassium 3.1 mmol/L (3.4-5.0); Sodium 139 mmol/L (137-145)
[2021-11-10 07:21] LABS: Band Neutrophils Percent 19 % (0-6); Lymphocytes Absolute Manual 0.42 K/mm3 (1.1-4.5); Monocytes Absolute Manual 0.85 K/mm3 (0.1-0.90); Monocytes Percent Manual 10 % (3-9); Neutrophils Absolute Manual 7.22 K/mm3 (1.3-6.7); Neutrophils Percent Manual 66 % (46-73); Total Cells Counted 100
[2021-11-10 07:27] LABS: CRP 31.9 mg/dL (<1.0); Platelet Estimate Adequate (Adequate)
[2021-11-10] MEDS: PANTOPRAZOLE SODIUM IV 40 MG VIAL IV PUSH (08:35)
[2021-11-10] MEDS: POTASSIUM CHLORIDE INJ 40 MEQ in SODIUM CHLORIDE 0.9% IV 500 ML 130 MEQ IVPB (08:53)
[2021-11-10] MEDS: ONDANSETRON INJ 4 MG/2 ML VIAL IV PUSH ×2 (08:53→22:56)
[2021-11-10 08:56] LABS: Magnesium 1.9 mg/dL (1.6-2.3)
[2021-11-10 12:00] LABS: Mean Platelet Volume 9.7 fl (7.4-10.4); Platelet Count Result 178 k/mm3 (150-375)
[2021-11-10 12:11] LABS: INR 1.1; Prothrombin Time 13.9 Seconds (11.1-14.7)
[2021-11-10 12:12] LABS: Partial Thromboplastin Time 31.1 SECONDS (22.3-36.8)
[2021-11-10] MEDS: BENZOCAINE/MENTHOL (*BKC) 18 EA LOZENGE 1 LOZENGE PO (12:40)
--- NOTE | 2021-11-10 12:55 | PM.PNGS ---
Progress Note: A&P Assessment and Plan (1) Diverticulitis of large intestine with abscess: Qualifiers: Diverticulitis bleeding: unspecified bleeding status Qualified Code(s): K57.20 - Diverticulitis of large intestine with perforation and abscess without bleeding Code(s): K57.20 - Diverticulitis of large intestine with perforation and abscess without bleeding Status: Acute Assessment and Plan: Abdominal pain and bloating worsened last evening and he vomited once. Now has NG tube in place. WBC remains normal and he has been afebrile. He is tender on exam today , however no peritoneal signs. Main complaint is bloating. KUB yesterday showed an abnormal bowel gas pattern and no free intraperitoneal air but with some air-fluid levels in the small bowel. Therefore, I saw the patient early this morning and then ordered repeat CT scan of the abdomen/ pelvis. This was reviewed with our radiologist here at [facility] and there are 2 large abscesses on either side of the area of perforation in the sigmoid colon. Patient does not have obvious peritonitis and hopefully will be able to have these controlled with percutaneous drains. I have discussed the procedure of CT-guided percutaneous drainage thoroughly with the patient and his and explained the alternative of an open laparotomy with drainage of the abscesses and Florin's procedure. After thorough discussion they wished to proceed with the percutaneous CT-guided drain and see how he does after that. Hopefully this will allow for resolution of the ileus or small-bowel obstruction this is also seen on the CT. This would then allow us to possibly prep the bowel and allow for a surgery without ostomy if he came to surgery. However, there was also some chance that the drains will allow him to recover with antibiotics and avoid surgery.. Continue IV Zosyn until just before going home. We will add metronidazole when he can again po to see how he tolerates it. (planning then on discharge to go with Levaquin and metronidazole.) Potassium slightly low so was supplemented Will see how patient tolerates advancement of diet and see how soon we can get his NG out after placement of the percutaneous drains. Appreciate dietitian consult for dietary instruction and then hopefully plan to discharge after ileus or partial small bowel obstruction resolves. Subjective Subjective Date/Time Seen: 11/10/21 10:55 And patient feeling less bloated now the NG tube is in. He had an episode of vomiting and then x-ray showed dilated stomach and small bowel yesterday evening. Therefore, NG tube was placed he had about 800 cc of fluid out the NG over the night. He had 1 small bowel movement yesterday but is not passing gas. Pain is fairly well controlled with occasional doses of morphine. Review of Systems Review of Systems: All systems reviewed & are unremarkable except as noted in HPI and below Constitutional: Constitutional: Reports as per HPI, Reports chills, Denies fatigue and Denies fever(s) Eyes: Eyes: Reports no additional eye complaints ENT: Reports system reviewed and no additional complaints, except as documented Cardiovascular: Cardiovascular: Reports no additional cardiovascular complaints, Denies chest pain, Denies leg edema and Denies dyspnea Respiratory: Respiratory: Reports no additional respiratory complaints, Denies cough and Denies dyspnea Gastrointestinal: Gastrointestinal: Reports as per HPI, Denies diarrhea, Denies loose stools, Reports nausea ( Controlled with Zofran.) and Reports vomiting ( had some last evening but none since NG placed.) Genitourinary: Genitourinary: Reports no additional male genitourinary complaints and Denies dysuria Musculoskeletal: Musculoskeletal: Reports no additional musculoskeletal complaints, Denies joint swelling, Denies numbness and Denies tingling Neurologic: Reports system reviewed and no additional complaints, except as documente
[2021-11-10 14:00] VITALS: BP 144/86; PULSE 86; RESP 16; TEMP 36.4; O2SAT 94
[2021-11-10 14:21] VITALS: BP 155/97; PULSE 89; RESP 18; O2SAT 90
--- NOTE | 2021-11-10 16:13 | PM.IMPN ---
Progress Note: A&P Assessment and Plan (1) Diverticulitis of large intestine with abscess: Qualifiers: Diverticulitis bleeding: unspecified bleeding status Qualified Code(s): K57.20 - Diverticulitis of large intestine with perforation and abscess without bleeding Code(s): K57.20 - Diverticulitis of large intestine with perforation and abscess without bleeding Status: Acute Assessment and Plan: Presented with lower abdominal pain and nausea CT on presentation showed ruptured sigmoid diverticulitis with not yet organized appearing collection of gas and feculent material peripheral to a large ruptured sigmoid diverticulum Appreciate general surgery consultation Continue IV Zosyn and metronidazole No evidence of sepsis. Patient is afebrile. WBC has normalized. Normal lactic. CT abdomen/pelvis repeated this morning showed worsened perforated sigmoid diverticulitis with large abscess extending from sigmoid colon to liver via right pericolic gutter as well as abscess of the left pericolic gutter He underwent percutaneous drainage per IR today and tolerated procedure well Abscess fluid cultures collected and are pending Continue NG decompression and NPO diet Supportive care (2) Bacteremia: Code(s): R78.81 - Bacteremia Status: Acute Assessment and Plan: 1 of 2 preliminary blood cultures with growth of Bacteroides vulgatus As above, no evidence for sepsis Continue IV Zosyn Routine susceptibility not performed (3) History of lung cancer: Code(s): Z85.118 - Personal history of other malignant neoplasm of bronchus and lung Status: Inactive Assessment and Plan: Patient with history of lung cancer s/p lobectomy in 2007 No ongoing issues Subjective Date/time seen: 11/10/21 16:13 Interval history: Date of service: 11/10/2021 Geoffrey Cevallos is a 56-year-old male with a history of lung cancer s/p lobectomy who is seen in follow-up for diverticulitis with perforation and abscess. He continues to endorse abdominal pain and bloating today. Rates his pain as 4/10. Notes no improvement with his bloating. He did have an episode of emesis last night. He has just returned from having abdominal drains placed by IR. He tolerated this procedure well. He is NPO at this time in his main complaint is that he feels very thirsty. He denies sore throat from the tube. He denies nausea or vomiting. He has no additional concerns including shortness breath, cough, chest pain, dizziness, lightheadedness, weakness, dysuria. His is present at the bedside. Review of Systems Review of Systems: All systems reviewed & are unremarkable except as noted in HPI and below Exam Narrative: General: Well-nourished, well-appearing 56-year-old male, sitting up in bed, appears slightly uncomfortable, NARD Neuro: awake, alert and oriented x4, speech clear, no focal neuro deficits noted HEENMT: normocephalic, atraumatic, EOMI, sclerae anicteric Respiratory: clear to auscultation bilaterally, nonlabored breathing Cardio: regular rate, regular rhythm with S1-S2 Abdomen: Protuberant, normoactive bowel sounds, firm, mild tenderness to palpation across lower abdomen, percutaneous drain in both right and left lower quadrant with reddish brown output Extremities: no edema, erythema, or tenderness to palpation, DP pulses 2+ bilaterally Skin: no rashes or lesions, warm and dry Psych: appropriate mood and affect, judgment and insight intact Objective Data Vital Signs Vital Signs: Vital Signs - 24 hr 11/09/21 21:58 11/10/21 05:56 11/10/21 14:00 Temperature 99.8 F H 98.4 F 97.6 F Pulse Rate 91 87 86 Respiratory Rate 16 16 16 Blood Pressure 149/86 H 139/85 144/86 H Pulse Oximetry 92 92 94 11/10/21 14:21 Temperature Pulse Rate 89 Respiratory Rate 18 Blood Pressure 155/97 H Pulse Oximetry 90 Intake/Output Intake/Output: Intake & Output 11/07/21 11/08/21
[2021-11-10 22:00] VITALS: BP 160/109; PULSE 83; RESP 18; TEMP 37.7; O2SAT 93
[2021-11-11] MEDS: MORPHINE SULFATE (*CRX) 2 MG/ML INJ IV PUSH ×4 (01:34→07:44)
[2021-11-11] MEDS: metroNIDAZOLE 500 MG/ISO 100ML 500 MG/100 ML BAG 100 MG IVPB ×3 (05:43→21:59)
[2021-11-11 05:57] LABS: Basophils Absolute Auto 0.1 K/mm3 (0.0-0.1); Basophils Percent Auto 0.8 % (0.2-1.2); Eosinophils Percent Auto 0.2 % (0-4.4); Hematocrit 35.4 % (42.0-52.0); Hemoglobin 11.3 g/dL (14.0-18.0); Immature Granulocyte Absolute 0.08 K/mm3 (0.00-0.031); Immature Granulocyte Percent A 0.6 % (0-0.5); Lymphocytes Absolute Auto 0.58 K/mm3 (0.9-3.2); Lymphocytes Percent Auto 4.6 % (18.3-44.2); Mean Corpuscular HGB Conc 31.9 g/dl (32-36); Mean Corpuscular Hemoglobin 31.4 pg (26-34); Mean Corpuscular Volume 98.3 fl (80-100); Mean Platelet Volume 9.8 fl (7.4-10.4); Monocytes Absolute Auto 1.9 K/mm3 (0.1-0.6); Monocytes Percent Auto 15.3 % (2.6-8.5); Neutrophils Absolute Auto 9.8 K/mm3 (1.3-6.7); Neutrophils Percent Auto 78.5 % (45.5-73.1); Platelet Count Result 186 k/mm3 (150-375); Red Cell Distribution Width 12.7 % (11.5-14.5); White Blood Count 12.5 K/mm3 (4.5-10.0)
[2021-11-11 06:00] VITALS: BP 158/98; PULSE 76; RESP 20; TEMP 36.6; O2SAT 91
[2021-11-11 06:10] LABS: Anion Gap 5 mmol/L (8-16); Blood Urea Nitrogen 20 mg/dL (9-20); Calcium 7.8 mg/dL (8.4-10.2); Carbon Dioxide 29 mmol/L (22-30); Chloride 105 mmol/L (98-107); Estimated CRCL calculation 93 ml/min; Estimated Glomerular Filt Rate > 60; Glucose 140 mg/dL (65-110); Potassium 3.2 mmol/L (3.4-5.0); Sodium 139 mmol/L (137-145)
--- NOTE | 2021-11-11 06:42 | PC.NURSE ---
At 2000 NGT connected to low intermittent suction. 2200 NGT clamped 2250 Pt nauseated , NGT connected to low intermittent suction. 2256 zofran given as ordered for nausea.
[2021-11-11 08:00] VITALS: PULSE 76; RESP 20; O2SAT 91
[2021-11-11] MEDS: POTASSIUM CHLORIDE INJ 40 MEQ in SODIUM CHLORIDE 0.9% IV 500 ML 130 MEQ IVPB (09:21)
[2021-11-11] MEDS: PANTOPRAZOLE SODIUM IV 40 MG VIAL IV PUSH (09:22)
--- NOTE | 2021-11-11 10:24 | P.PNIM_ITS ---
Progress Note: A&P Assessment and Plan (1) Diverticulitis of large intestine with abscess: Qualifiers: Diverticulitis bleeding: unspecified bleeding status Qualified Code(s): K57.20 - Diverticulitis of large intestine with perforation and abscess without bleeding Code(s): K57.20 - Diverticulitis of large intestine with perforation and abscess without bleeding Status: Acute Assessment and Plan: Presented with lower abdominal pain and nausea * CT on presentation showed ruptured sigmoid diverticulitis with not yet organized appearing collection of gas and feculent material peripheral to a large ruptured sigmoid diverticulum * Appreciate general surgery consultation * Continue IV Zosyn and metronidazole * Slight increase in WBC, up to 12.5 today * CT abdomen/pelvis on 11/10 showed worsened perforated sigmoid diverticulitis with large abscess extending from sigmoid colon to liver via right paracolic gutter as well as abscess of the left paracolic gutter * He underwent percutaneous drainage per IR on 11/10 and tolerated procedure well * Abscess fluid cultures collected and are pending * Continue NG decompression and NPO diet. Gentle IV fluid hydration while NPO * Supportive care * Working on arranging transfer to tertiary care facility per family request. See subjective. (2) Bacteremia: Code(s): R78.81 - Bacteremia Status: Acute Assessment and Plan: 1 of 2 preliminary blood cultures with growth of Bacteroides vulgatus * Continue IV Zosyn * Patient is not septic. Afebrile. Normal lactic. Vital signs are stable. * Routine susceptibility not performed (3) History of lung cancer: Code(s): Z85.118 - Personal history of other malignant neoplasm of bronchus and lung Status: Inactive Assessment and Plan: Patient with history of lung cancer s/p lobectomy in 2007 * No ongoing issues Subjective Date/time seen: 11/11/21 10:24 Interval history: Date of service: 11/10/2021 eGoffrey Cevallos is a 56-year-old male with a history of lung cancer s/p lobectomy who is seen in follow-up for diverticulitis with perforation and abscess. His is at the bedside. His pain is improved today. He rates it as 3/10. He still feels very bloated in his abdomen. He also complains of swelling in his ankles today. States last night when the tube was clamped and he attempted to drink liquids he felt very full and did not tolerate this well. He is hesitant about taking pain medications because he believes he is too full in his abdomen to receive more liquid. Today the patient tells me that he would like to be transferred to [facility]. The patient's states her sister works at [facility] and the patient would like to be to be at a [facility] hospital. I called the [facility] transfer center informed me they are at capacity and not accepting transfers at this time. Recommended to call back in 6 hours to see if the waitlist has opened back. Informed patient and of this conversation. At the request, I then called [facility] transfer center. They would prefer not to go to [facility], however will proceed with transfer and determine if patient is accepted. She will be in touch with the patients insurance company to determine if this will be covered. I will await return call from [facility]. Will also call [facility] again in the recommended 6 hour window. Review of Systems Review of Systems: All systems reviewed & are unremarkable except as noted in HPI and below Exam Narrative: General: Well-nourished, well-appearing 56-year-old male, sitting up in bed, comf
--- NOTE | 2021-11-11 10:24 | PM.IMPN ---
Progress Note: A&P Assessment and Plan (1) Diverticulitis of large intestine with abscess: Qualifiers: Diverticulitis bleeding: unspecified bleeding status Qualified Code(s): K57.20 - Diverticulitis of large intestine with perforation and abscess without bleeding Code(s): K57.20 - Diverticulitis of large intestine with perforation and abscess without bleeding Status: Acute Assessment and Plan: Presented with lower abdominal pain and nausea CT on presentation showed ruptured sigmoid diverticulitis with not yet organized appearing collection of gas and feculent material peripheral to a large ruptured sigmoid diverticulum Appreciate general surgery consultation Continue IV Zosyn and metronidazole Slight increase in WBC, up to 12.[address] abdomen/pelvis on 11/10 showed worsened perforated sigmoid diverticulitis with large abscess extending from sigmoid colon to liver via right paracolic gutter as well as abscess of the left paracolic gutter He underwent percutaneous drainage per IR on 11/10 and tolerated procedure well Abscess fluid cultures collected and are pending Continue NG decompression and NPO diet. Gentle IV fluid hydration while NPO Supportive care Working on arranging transfer to tertiary care facility per family request. See subjective. (2) Bacteremia: Code(s): R78.81 - Bacteremia Status: Acute Assessment and Plan: 1 of 2 preliminary blood cultures with growth of Bacteroides vulgatus Continue IV Zosyn Patient is not septic. Afebrile. Normal lactic. Vital signs are stable. Routine susceptibility not performed (3) History of lung cancer: Code(s): Z85.118 - Personal history of other malignant neoplasm of bronchus and lung Status: Inactive Assessment and Plan: Patient with history of lung cancer s/p lobectomy in 2007 No ongoing issues Subjective Date/time seen: 11/11/21 10:24 Interval history: Date of service: 11/10/2021 Geoffrey Cevallos is a 56-year-old male with a history of lung cancer s/p lobectomy who is seen in follow-up for diverticulitis with perforation and abscess. His is at the bedside. His pain is improved today. He rates it as 3/10. He still feels very bloated in his abdomen. He also complains of swelling in his ankles today. States last night when the tube was clamped and he attempted to drink liquids he felt very full and did not tolerate this well. He is hesitant about taking pain medications because he believes he is too full in his abdomen to receive more liquid. Today the patient tells me that he would like to be transferred to [facility]. The patient's states her sister works at [facility] and the patient would like to be to be at a [facility] hospital. I called the [facility] transfer center informed me they are at capacity and not accepting transfers at this time. Recommended to call back in 6 hours to see if the waitlist has opened back. Informed patient and of this conversation. At the request, I then called [facility] transfer center. They would prefer not to go to [facility], however will proceed with transfer and determine if patient is accepted. She will be in touch with the [email or web address] insurance [employer] to determine if this will be covered. I will await return call from [facility]. Will also call [facility] again in the recommended 6 hour window. Review of Systems Review of Systems: All systems reviewed & are unremarkable except as noted in HPI and below Exam Narrative: General: Well-nourished, well-appearing 56-year-old male, sitting up in bed, comfortable, NARD Neuro: awake, alert and oriented x4, speech clear, no focal neuro deficits noted HEENMT: normocephalic, atraumatic, EOMI, sclerae anicteric Respiratory: clear to auscultation bilaterally, nonlabored breathing Cardio: regular rate, regular rhythm with S1-S2 Abdomen: Protuberant, normoactive bowel sounds, firm, mild tenderness to palpation across lowe
[2021-11-11 11:06] LABS: Alanine Aminotransferase 23 U/L (4-50); Albumin Level 2.8 g/dL (3.5-5.1); Alkaline Phosphatase 142 U/L (38-126); Aspartate Amino Transferase 29 U/L (17-59); Bilirubin,Total 1.2 mg/dL (0.2-1.3); CRP 25.7 mg/dL (<1.0)
[2021-11-11] MEDS: SODIUM CHLORIDE 0.9% IV 1,000 ML 70 ML IV CONT (12:40)
[2021-11-11] MEDS: IBUPROFEN IV 800 MG/200 ML 800 MG/200 ML BAG 400 MG IVPB ×2 (13:25→22:33)
[2021-11-11 14:00] VITALS: BP 146/73; PULSE 76; RESP 16; TEMP 36.7; O2SAT 92
--- NOTE | 2021-11-11 16:08 | PM.PNGS ---
Progress Note: A&P Assessment and Plan (1) Diverticulitis of large intestine with abscess: Qualifiers: Diverticulitis bleeding: unspecified bleeding status Qualified Code(s): K57.20 - Diverticulitis of large intestine with perforation and abscess without bleeding Code(s): K57.20 - Diverticulitis of large intestine with perforation and abscess without bleeding Status: Acute Assessment and Plan: Abdominal pain and bloating present but cotrolled. Now has NG tube in place. WBC 12,000 todayand he has been afebrile. He is tender on exam today , however no peritoneal signs. Main complaint is bloating. The CT scan omn 11/10 was reviewed with our radiologist here at [place] and there are 2 large abscesses on either side of the area of perforation in the sigmoid colon. Patient does not have obvious peritonitis and hopefully will be able to have these controlled with percutaneous drains. I have discussed the procedure of CT-guided percutaneous drainage thoroughly with the patient and his and explained the alternative of an open laparotomy with drainage of the abscesses and Florin's procedure. After thorough discussion they wished to proceed with the percutaneous CT-guided drain and see how he does after that. Hopefully this will allow for resolution of the ileus or small-bowel obstruction this is also seen on the CT. This would then allow us to possibly prep the bowel and allow for a surgery without ostomy if he came to surgery. However, there was also some chance that the drains will allow him to recover with antibiotics and avoid surgery.. Continue IV Zosyn until just before going home. We will add metronidazole when he can again take po meds to see how he tolerates it. (planning then on discharge to go with Levaquin and metronidazole.) Potassium slightly low so was supplemented Additional Plan I have discussed the patient's case and plan of care with Dr. Phelps. Subjective Subjective Date/Time Seen: 11/11/21 16:08 Patient lying in bed looking fairly comfortable when I entered the room. Deny nausea. Abdominal pain is not too bad. Denies flatus or bowel movement in the last 24 hours. Nurse reports he is tolerating some clear liquids while NG is clamped. (On a 2 hour clamped 2 hours to intermittent suction clamping routine during daytime hours for now). Review of Systems Review of Systems: All systems reviewed & are unremarkable except as noted in HPI and below Constitutional: Constitutional: Reports as per HPI, Reports chills, Denies fatigue and Denies fever(s) Eyes: Eyes: Reports no additional eye complaints ENT: Reports system reviewed and no additional complaints, except as documented Cardiovascular: Cardiovascular: Reports no additional cardiovascular complaints, Denies chest pain, Denies leg edema and Denies dyspnea Respiratory: Respiratory: Reports no additional respiratory complaints, Denies cough and Denies dyspnea Gastrointestinal: Gastrointestinal: Reports as per HPI, Reports no additional gastrointestinal complaints, Reports abdominal pain (Mild, controlled with ibuprofen.), Denies melena, Reports bloating, Denies hematochezia, Reports constipation, Reports GI cramping, Denies diarrhea, Denies loose stools, Reports nausea ( Controlled with Zofran.) and Reports vomiting ( had some last evening but none since NG placed.) Genitourinary: Genitourinary: Reports no additional male genitourinary complaints and Denies dysuria Musculoskeletal: Musculoskeletal: Reports no additional musculoskeletal complaints, Denies joint swelling, Denies numbness and Denies tingling Neurologic: Reports system reviewed and no additional complaints, except as documented, Denies focal weakness, Denies numbness and Denies tingling Psychiatric: Psychiatric: Denies anxiety and Denies depression Endocrine: Endocrine: Denies fatigue Exam Const: General: comfortable, no acute distress, alert and awake Nutritiona
[2021-11-11 20:00] VITALS: PULSE 76; RESP 20; O2SAT 94
[2021-11-11 22:00] VITALS: BP 147/98; PULSE 76; RESP 20; TEMP 37; O2SAT 94
[2021-11-11] MEDS: MELATONIN 5 MG TABLET PO (22:00)
[2021-11-12] VITALS (8 sets, daily range): BP systolic 126–180; BP diastolic 74–110; PULSE 68–88; RESP 18–24; TEMP 35.8–36.9; O2SAT 90–94
[2021-11-12] MEDS: SODIUM CHLORIDE 0.9% IV 1,000 ML 70 ML IV CONT ×2 (03:39→06:24)
[2021-11-12] MEDS: metroNIDAZOLE 500 MG/ISO 100ML 500 MG/100 ML BAG 100 MG IVPB ×3 (06:11→21:20)
[2021-11-12] MEDS: MORPHINE SULFATE (*CRX) 2 MG/ML INJ IV PUSH ×3 (07:52→10:33)
[2021-11-12] MEDS: ONDANSETRON INJ 4 MG/2 ML VIAL IV PUSH (08:09)
[2021-11-12 09:22] LABS: Hematocrit 38.8 % (42.0-52.0); Hemoglobin 12.7 g/dL (14.0-18.0); Mean Corpuscular HGB Conc 32.7 g/dl (32-36); Mean Corpuscular Hemoglobin 31.9 pg (26-34); Mean Corpuscular Volume 97.5 fl (80-100); Mean Platelet Volume 9.7 fl (7.4-10.4); Platelet Count Result 237 k/mm3 (150-375); Red Blood Count 3.98 M/mm3 (4.6-6.20); Red Cell Distribution Width 12.9 % (11.5-14.5); White Blood Count 16.3 K/mm3 (4.5-10.0)
[2021-11-12 09:48] LABS: Alanine Aminotransferase 20 U/L (4-50); Albumin Level 2.6 g/dL (3.5-5.1); Alkaline Phosphatase 178 U/L (38-126); Anion Gap 8 mmol/L (8-16); Aspartate Amino Transferase 25 U/L (17-59); Blood Urea Nitrogen 20 mg/dL (9-20); Calcium 7.8 mg/dL (8.4-10.2); Carbon Dioxide 25 mmol/L (22-30); Chloride 107 mmol/L (98-107); Estimated CRCL calculation 93 ml/min; Estimated Glomerular Filt Rate > 60; Glucose 129 mg/dL (65-110); Potassium 3.5 mmol/L (3.4-5.0); Sodium 140 mmol/L (137-145)
[2021-11-12 09:50] LABS: Lactic Acid Reflex 1.5 mmol/L (0.7-2.1)
[2021-11-12 09:53] LABS: CRP 18.6 mg/dL (<1.0)
[2021-11-12] MEDS: PANTOPRAZOLE SODIUM IV 40 MG VIAL IV PUSH ×2 (10:34→20:58)
--- NOTE | 2021-11-12 10:43 | PM.PNGS ---
Progress Note: A&P Assessment and Plan (1) Diverticulitis of large intestine with abscess: Qualifiers: Diverticulitis bleeding: unspecified bleeding status Qualified Code(s): K57.20 - Diverticulitis of large intestine with perforation and abscess without bleeding Code(s): K57.20 - Diverticulitis of large intestine with perforation and abscess without bleeding Status: Acute Assessment and Plan: Abdominal pain and bloating present but until 8AM today controlled with iv ibuprofen Now has NG tube in place. WBC 16,000 today and he has been afebrile. He is Still somewhat distended and tender on exam today mainly in the epigastrium , however no peritoneal signs. Main complaint is bloating. (The CT scan on 11/10 was reviewed at that time with our radiologist here at [place] and there are 2 large abscesses on either side of the area of perforation in the sigmoid colon. Patient does not have obvious peritonitis and hopefully will be able to have these controlled with percutaneous drains. I have discussed the procedure of CT-guided percutaneous drainage thoroughly with the patient and his and explained the alternative of an open laparotomy with drainage of the abscesses and Florin's procedure. After thorough discussion they wished to proceed with the percutaneous CT-guided drain and see how he does after that. Hopefully this will allow for resolution of the ileus or small-bowel obstruction this is also seen on the CT. This would then allow us to possibly prep the bowel and allow for a surgery without ostomy if he came to surgery. However, there was also some chance that the drains will allow him to recover with antibiotics and avoid surgery). Continue IV Zosyn and Flagyl for now. (planning then on discharge to go with Levaquin and metronidazole.) Increased pain today but vital signs are stable CRP is down and lactic acid is normal so I do not believe he is having worsening signs of systemic sepsis. Will continue IV antibiotics percutaneous drainage and out leave his NG to suction for 24 hours to see what we get out. Will still let him have ice chips around the NG tube on a limited basis. Additional Plan Will have radiology make this of all his imaging to be sent with him if he is transferred to [facility] at his request this date. For the next 24 hours will leave his NG to low intermittent suction to re-evaluate the abdomen for possible small bowel obstruction related to the inflammation from his perforated sigmoid diverticulitis. If this does not resolve he may need to be considered for a surgical intervention which most likely would require formation of end colostomy or diverting ileostomy. Subjective Subjective Date/Time Seen: 11/12/21 10:43 Patient reports: still having pain, flatus and bowel movement Interval history: patient states that he passed some gas had a bowel movement and then began having increased epigastric pain while sitting on the toilet. He had trouble standing and getting back to his bed. Called the nurse and asked her for more pain medicine. Prior to that for 12 hours or more he had been doing well with just occasional IV ibuprofen for pain. When I talked to him he had no other complaints other than the epigastric pain that increased he had slept okay but had 1300 out NG overnight. Review of Systems Review of Systems: All systems reviewed & are unremarkable except as noted in HPI and below Constitutional: Constitutional: Reports as per HPI, Reports chills, Denies fatigue and Denies fever(s) Eyes: Eyes: Reports no additional eye complaints ENT: Reports system reviewed and no additional complaints, except as documented Cardiovascular: Cardiovascular: Reports no additional cardiovascular complaints, Denies chest pain, Denies leg edema and Denies dyspnea Respiratory: Respiratory: Reports no additional respiratory complaints, Denies cough and Denies dyspnea Comment
[2021-11-12] MEDS: MORPHINE SULFATE (*CRX) 2 MG/ML INJ 4 MG IV PUSH ×5 (11:56→20:53)
--- NOTE | 2021-11-12 13:31 | PM.IMPN ---
Progress Note: A&P Assessment and Plan (1) Diverticulitis of large intestine with abscess: Qualifiers: Diverticulitis bleeding: unspecified bleeding status Qualified Code(s): K57.20 - Diverticulitis of large intestine with perforation and abscess without bleeding Code(s): K57.20 - Diverticulitis of large intestine with perforation and abscess without bleeding Status: Acute Assessment and Plan: Presented with lower abdominal pain and nausea CT on presentation showed ruptured sigmoid diverticulitis with not yet organized appearing collection of gas and feculent material peripheral to a large ruptured sigmoid diverticulum Appreciate general surgery consultation CT abdomen/pelvis on 11/10 showed worsened perforated sigmoid diverticulitis with large abscess extending from sigmoid colon to liver via right paracolic gutter as well as abscess of the left paracolic gutter He underwent percutaneous drainage per IR on 11/10 and tolerated procedure well. He has had 150 cc out of right drain today Abscess fluid cultures collected. Preliminary results show gram negative bacilli Continue IV Zosyn and metronidazole Continue NG decompression and NPO diet with occasional ice chips. Gentle IV fluid hydration while NPO Patient with increasing pain today. Slight increase in WBC, lactic is normal, CRP is trending down. Remains afebrile. Patient does not meet SIRS criteria for sepsis. Continue supportive care and analgesics as needed Awaiting bed availability for transfer to [facility] per family request. See subjective. (2) Bacteremia: Code(s): R78.81 - Bacteremia Status: Acute Assessment and Plan: 1 of 2 blood cultures with growth of Bacteroides vulgatus Continue IV Zosyn Patient is not septic. Afebrile. Normal lactic. Vital signs are stable. Routine susceptibility not performed (3) History of lung cancer: Code(s): Z85.118 - Personal history of other malignant neoplasm of bronchus and lung Status: Inactive Assessment and Plan: Patient with history of lung cancer s/p lobectomy in 2007 No ongoing issues (4) Hypokalemia: Code(s): E87.6 - Hypokalemia Status: Acute Assessment and Plan: Potassium has been slightly low has been supplemented Potassium normal today at 3.5 Monitor BMP (5) Abnormal chest x-ray: Code(s): R93.89 - Abnormal findings on diagnostic imaging of other specified body structures Status: Acute Assessment and Plan: Patient complained of cough today and RN concerned for crackles (not appreciated on my earlier exam) CXR showed bibasilar airspace disease concerning for atelectasis vs pneumonia Favor atelectasis. Patient does not have signs or symptoms to suggest acute respiratory infection Initiate incentive spirometry Monitor respiratory status closely Maintaining adequate O2 sats on room air No evidence of pulmonary edema. Monitor volume status closely Subjective Date/time seen: 11/12/21 13:31 Interval history: Date of service: 11/10/2021 Geoffrey Cevallos is a 56-year-old male with a history of lung cancer s/p lobectomy who is seen in follow-up for diverticulitis with perforation and abscess. His is at the bedside. He reports this morning he thought maybe he needed to have a bowel movement but after walking to the bathroom and sitting down he experienced a sharp excruciating pain in the middle of his abdomen. This has calmed down now but he is still endorsing increased abdominal pain and feels more bloated today. He also complains of nausea but no emesis. Denies shortness of breath, cough, chest pain. No dizziness, lightheadedness, or weakness. Denies swelling of his extremities. Patient has no additional concerns aside from his increased pain. He and his were both very concerned regarding this. They are awaiting transfer to [facility]. Review of Systems Review of Systems
[2021-11-12] MEDS: IBUPROFEN IV 800 MG/200 ML 800 MG/200 ML BAG 200 MG IVPB (22:04)
--- NOTE | 2021-11-12 23:09 | PC.NURSE ---
RN explained planned changes to medication per Dr. Phelps; patient questioned why there would be changes to the existing orders. Patient presented as forgetful to the previous interactions with glaucoma specialist regarding uncontrolled levels of pain and confused as to why it was felt changes were necessary. glaucoma specialist reiterated the previous encounters related to patient c/o pain; NG suction issues; contact with Dr. Phelps. RN explained all changes to medication profile and patient verbalized agreement to plan of care. RN also notified patient that Dr. Phelps intends to repeat an abdominal x-ray and labs and will discuss results with patient accordingly. Patient states I'm good right now, I don't need anything else for pain, and I'm feeling better.
--- NOTE | 2021-11-12 23:49 | PC.NURSE ---
2034 Pt c/o of abdominal pain & that his N/G wasn't working right. Ng tube was flushed with only a few drops return when hooked back to suction. Both the canister & regulator were switched out. Pt was also given morphine for pain. Charge nurse Anabell Remy was notified and came to the room to check on the suction setup and complaints of pain. Times the next dose of pain med could be given were already written on the board so the Pt would know when he could have his next pain med. After Anabell checked the suction & listened to the patient concerns she called Dr Phelps and reported to him all the patient concerns. Orders were received.
[2021-11-13] MEDS: SODIUM CHLORIDE 0.9% IV 1,000 ML 70 ML IV CONT (00:14)
[2021-11-13 02:41] VITALS: BP 136/74; PULSE 77; RESP 16; TEMP 36.4; O2SAT 93
[2021-11-13] MEDS: SODIUM CHLORIDE 0.9% IV 1,000 ML 150 ML IV CONT (02:57)
[2021-11-13] MEDS: KETOROLAC 15 MG/ML VIAL (*BKC) IV PUSH ×2 (02:58→21:03)
[2021-11-13] MEDS: metroNIDAZOLE 500 MG/ISO 100ML 500 MG/100 ML BAG 100 MG IVPB ×3 (05:22→21:03)
[2021-11-13 05:54] LABS: Hematocrit 43.3 % (42.0-52.0); Hemoglobin 13.6 g/dL (14.0-18.0); Mean Corpuscular HGB Conc 31.4 g/dl (32-36); Mean Corpuscular Hemoglobin 31.2 pg (26-34); Mean Corpuscular Volume 99.3 fl (80-100); Mean Platelet Volume 9.6 fl (7.4-10.4); Platelet Count Result 329 k/mm3 (150-375); Red Blood Count 4.36 M/mm3 (4.6-6.20); White Blood Count 22.6 K/mm3 (4.5-10.0)
[2021-11-13 06:00] VITALS: BP 141/91; PULSE 102; RESP 24; TEMP 36.2; O2SAT 97
--- NOTE | 2021-11-13 06:26 | PC.NURSE ---
Pt asked to have his NG tube clamped so he could walk in room. Ng unclamped for about 20 min. When Pt back in bed attempted to hook Pt up to suction. Pt refused stating it is the NG tube & suction that is making him sick. Will continue to encourage Pt to consider utilizing suction for his NG
[2021-11-13 06:30] LABS: Band Neutrophils Percent 22 % (0-6); Lymphocytes Absolute Manual 0.67 K/mm3 (1.1-4.5); Monocytes Percent Manual 4 % (3-9); Neutrophils Absolute Manual 21.01 K/mm3 (1.3-6.7); Neutrophils Percent Manual 71 % (46-73); Platelet Estimate Adequate (Adequate); Total Cells Counted 100
[2021-11-13 06:31] LABS: Poikilocytosis 1+ (NORMAL)
[2021-11-13 06:34] LABS: Alanine Aminotransferase 22 U/L (4-50); Albumin Level 2.9 g/dL (3.5-5.1); Alkaline Phosphatase 134 U/L (38-126); Anion Gap 8 mmol/L (8-16); Aspartate Amino Transferase 32 U/L (17-59); Blood Urea Nitrogen 22 mg/dL (9-20); Calcium 7.9 mg/dL (8.4-10.2); Carbon Dioxide 26 mmol/L (22-30); Chloride 104 mmol/L (98-107); Estimated CRCL calculation 83 ml/min; Estimated Glomerular Filt Rate > 60; Glucose 136 mg/dL (65-110); Potassium 3.1 mmol/L (3.4-5.0); Sodium 138 mmol/L (137-145)
[2021-11-13 06:44] LABS: CRP 31.5 mg/dL (<1.0)
--- NOTE | 2021-11-13 07:29 | PM.PNGS ---
Progress Note: A&P Assessment and Plan (1) Diverticulitis of large intestine with abscess: Qualifiers: Diverticulitis bleeding: unspecified bleeding status Qualified Code(s): K57.20 - Diverticulitis of large intestine with perforation and abscess without bleeding Code(s): K57.20 - Diverticulitis of large intestine with perforation and abscess without bleeding Status: Acute Assessment and Plan: Last night patient had a significant increase in pain and chest x-ray showed atelectasis possible early pneumonia. Today's white blood cell count is up again his CRP is back up however he states he feels better and is passing gas. He wanted to have his NG tube out so that he could drink. I had a thorough discussion with him that I was coming in this morning to discuss with him that it may be sanches to consider that the infection is getting worse and that he should consider having the open laparotomy with Florin's procedure and descending colostomy or a colonic anastomosis with a diverting ileostomy. However, since he is feeling better and would like to try having his NG out it certainly is true if his bowels start working that he may get through this without surgery. Therefore, we have agreed that we will remove the NG and let him try clear liquids for the next 24 hours. Repeat labs tomorrow give him a rider of potassium since potassium is low and may perpetuate any ileus that is related to his infection and abscess. The abscesses both seem to be having decreased drainage over the last 24 hours and his abdomen does feel somewhat softer on exam today Additional Plan Will have radiology make disc's of all his imaging to be sent with him if he is transferred to [facility] or elsewhere at his request. For the next 24 hours will allow patient to have clear liquids and see how he does. Then re-evaluate the abdomen for possible small bowel obstruction vs ileus related to the inflammation from his perforated sigmoid diverticulitis. If this does not resolve he may need to be considered for a surgical intervention which most likely would require formation of end colostomy or diverting ileostomy. He was again informed of this this date at 7:30 a.m. He specifically decided not to have me pursue surgery for this and would like to have his NG tube out and try clear liquids to see how he does and how he feels since his pain is improving and he has been able to pass gas he would like to see if he can still get by with the current treatment. Will continue IV antibiotics for now. Subjective Subjective Date/Time Seen: 11/13/21 07:29 Patient is sitting up in bed with NG clamp and I came in the room. He states that his pain has been much better overnight. Nurses report that he only took 1 dose of ketorolac through the night. He feels like the upper abdominal pain is somewhat better but feels like he can drink and once his NG out. He has been passing some gas he states but only very small amount of loose stool once or twice yesterday. He has been getting up walking in the room. Review of Systems Review of Systems: All systems reviewed & are unremarkable except as noted in HPI and below Constitutional: Constitutional: Reports as per HPI, Reports chills, Denies fatigue and Denies fever(s) Eyes: Eyes: Reports no additional eye complaints ENT: Reports system reviewed and no additional complaints, except as documented Cardiovascular: Cardiovascular: Reports no additional cardiovascular complaints, Denies chest pain, Denies leg edema and Denies dyspnea Respiratory: Respiratory: Reports no additional respiratory complaints, Denies cough and Denies dyspnea Gastrointestinal: Gastrointestinal: Reports as per HPI, Reports no additional gastrointestinal complaints, Reports abdominal pain ( Improved today with + flatus), Denies melena, Reports bloating, Denies hematochezia, Reports constipation, Reports GI cramping, Denies diarrhea, Denies
[2021-11-13 08:00] VITALS: PULSE 102; RESP 24; O2SAT 97
[2021-11-13] MEDS: PANTOPRAZOLE SODIUM IV 40 MG VIAL IV PUSH ×2 (09:45→21:03)
[2021-11-13] MEDS: POTASSIUM CHLORIDE INJ 40 MEQ in SODIUM CHLORIDE 0.9% IV 500 ML 130 MEQ IVPB (09:45)
[2021-11-13 12:01] LABS: EDCOVIDSCREEN Negative (Negative)
--- NOTE | 2021-11-13 12:32 | P.PNIM_ITS ---
Progress Note: A&P Assessment and Plan (1) Diverticulitis of large intestine with abscess: Qualifiers: Diverticulitis bleeding: unspecified bleeding status Qualified Code(s): K57.20 - Diverticulitis of large intestine with perforation and abscess without bleeding Code(s): K57.20 - Diverticulitis of large intestine with perforation and abscess without bleeding Status: Acute Assessment and Plan: Presented with lower abdominal pain and nausea * CT on presentation showed ruptured sigmoid diverticulitis with not yet organized appearing collection of gas and feculent material peripheral to a large ruptured sigmoid diverticulum * Appreciate general surgery consultation * CT abdomen/pelvis on 11/10 showed worsened perforated sigmoid diverticulitis with large abscess extending from sigmoid colon to liver via right paracolic gutter as well as abscess of the left paracolic gutter * He underwent percutaneous drainage per IR on 11/10 * Abscess fluid cultures collected. Preliminary results show growth of Bacteroides and E coli * Continue IV Zosyn and metronidazole * NG tube removed today. Continue with clear liquid diet. Continue gentle IV fluid hydration until tolerating diet well * Patient is on wait list at [facility], [facility], and [facility] for transfer to general surgery/Colorectal surgery. Awaiting bed availability (2) Septicemia: Code(s): A41.9 - Sepsis, unspecified organism Status: Acute Assessment and Plan: Patient with Bacteroides bacteremia, now meeting criteria for sepsis with significantly increased leukocytosis, tachycardia, tachypnea. Source of infection is diverticulitis with abscess * One of 2 blood cultures with growth of Bacteroides vulgatus (also growing on preliminary abscess culture) * Routine susceptibility not performed * Continue IV Zosyn * Patient remains afebrile with normal lactic acid levels and maintaining stable blood pressure * CRP is trending up. Continue to monitor (3) History of lung cancer: Code(s): Z85.118 - Personal history of other malignant neoplasm of bronchus and lung Status: Inactive Assessment and Plan: Patient with history of lung cancer s/p lobectomy in 2007 * No ongoing issues (4) Hypokalemia: Code(s): E87.6 - Hypokalemia Status: Acute Assessment and Plan: Potassium has been low due to NPO diet and has been supplemented * Potassium 3.1 today * Monitor BMP (5) Abnormal chest x-ray: Code(s): R93.89 - Abnormal findings on diagnostic imaging of other specified body structures Status: Acute Assessment and Plan: Patient complained of cough yesterday * CXR showed bibasilar airspace disease concerning for atelectasis vs pneumonia * Favor atelectasis. Patient does not have signs or symptoms to suggest acute respiratory infection * Continue incentive spirometry * Monitor respiratory status closely * Maintaining adequate O2 sats on room air * No evidence of pulmonary edema. Monitor volume status closely while on IV fluids Subjective Date/time seen: 11/13/21 12:32 Interval history: Date of service: 11/13/2021 Geoffrey Cevallos is a 56-year-old male with a history of lung cancer s/p lobectomy who is seen in follow-up for diverticulitis with perforation and abscess. His is at the bedside. He feels improved today. He is not having again abdominal pain today. He still endorses feeling quite bloated. Last night he was having some pain but this was finally able to resolve with ibuprofen. He had his NG tube removed this morn
--- NOTE | 2021-11-13 12:32 | PM.IMPN ---
Progress Note: A&P Assessment and Plan (1) Diverticulitis of large intestine with abscess: Qualifiers: Diverticulitis bleeding: unspecified bleeding status Qualified Code(s): K57.20 - Diverticulitis of large intestine with perforation and abscess without bleeding Code(s): K57.20 - Diverticulitis of large intestine with perforation and abscess without bleeding Status: Acute Assessment and Plan: Presented with lower abdominal pain and nausea CT on presentation showed ruptured sigmoid diverticulitis with not yet organized appearing collection of gas and feculent material peripheral to a large ruptured sigmoid diverticulum Appreciate general surgery consultation CT abdomen/pelvis on 11/10 showed worsened perforated sigmoid diverticulitis with large abscess extending from sigmoid colon to liver via right paracolic gutter as well as abscess of the left paracolic gutter He underwent percutaneous drainage per IR on 11/10 Abscess fluid cultures collected. Preliminary results show growth of Bacteroides and E coli Continue IV Zosyn and metronidazole NG tube removed today. Continue with clear liquid diet. Continue gentle IV fluid hydration until tolerating diet well Patient is on wait list at [facility], [facility], and [facility] for transfer to general surgery/Colorectal surgery. Awaiting bed availability (2) Septicemia: Code(s): A41.9 - Sepsis, unspecified organism Status: Acute Assessment and Plan: Patient with Bacteroides bacteremia, now meeting criteria for sepsis with significantly increased leukocytosis, tachycardia, tachypnea. Source of infection is diverticulitis with abscess One of 2 blood cultures with growth of Bacteroides vulgatus (also growing on preliminary abscess culture) Routine susceptibility not performed Continue IV Zosyn Patient remains afebrile with normal lactic acid levels and maintaining stable blood pressure CRP is trending up. Continue to monitor (3) History of lung cancer: Code(s): Z85.118 - Personal history of other malignant neoplasm of bronchus and lung Status: Inactive Assessment and Plan: Patient with history of lung cancer s/p lobectomy in 2007 No ongoing issues (4) Hypokalemia: Code(s): E87.6 - Hypokalemia Status: Acute Assessment and Plan: Potassium has been low due to NPO diet and has been supplemented Potassium 3.1 today Monitor BMP (5) Abnormal chest x-ray: Code(s): R93.89 - Abnormal findings on diagnostic imaging of other specified body structures Status: Acute Assessment and Plan: Patient complained of cough yesterday CXR showed bibasilar airspace disease concerning for atelectasis vs pneumonia Favor atelectasis. Patient does not have signs or symptoms to suggest acute respiratory infection Continue incentive spirometry Monitor respiratory status closely Maintaining adequate O2 sats on room air No evidence of pulmonary edema. Monitor volume status closely while on IV fluids Subjective Date/time seen: 11/13/21 12:32 Interval history: Date of service: 11/13/2021 Geoffrey Cevallos is a 56-year-old male with a history of lung cancer s/p lobectomy who is seen in follow-up for diverticulitis with perforation and abscess. His is at the bedside. He feels improved today. He is not having again abdominal pain today. He still endorses feeling quite bloated. Last night he was having some pain but this was finally able to resolve with ibuprofen. He had his NG tube removed this morning and he has been tolerating clear liquids so far. He feels that his face is becoming ?drawn? and he is losing muscle in his arms. He endorses slight swelling in his legs. He has been getting up and walking around today and tolerated this well. Denies dizziness, lightheadedness, weakness, shortness breath,, chest pain. He states he was coughing a little bit yesterday and he thinks this was due to the N
[2021-11-13 14:00] VITALS: BP 141/86; PULSE 101; RESP 22; TEMP 35.9; O2SAT 92
[2021-11-13] MEDS: FUROSEMIDE INJ 40 MG/4 ML VIAL 20 MG IV PUSH (15:33)
[2021-11-13] MEDS: ONDANSETRON INJ 4 MG/2 ML VIAL IV PUSH (16:20)
[2021-11-13] MEDS: HYDROmorphone HCL INJ (*CRX) 1 MG/ML SYR 0.5 MG IV PUSH (18:10)
[2021-11-13 22:00] VITALS: BP 170/99; PULSE 106; RESP 16; TEMP 36.6; O2SAT 94
[2021-11-13] MEDS: MELATONIN 5 MG TABLET PO (22:14)
[2021-11-14] MEDS: KETOROLAC 15 MG/ML VIAL (*BKC) IV PUSH (05:16)
[2021-11-14 05:54] VITALS: BP 134/87; PULSE 91; RESP 16; TEMP 37.8; O2SAT 93
[2021-11-14 06:26] LABS: Basophils Absolute Auto 0.1 K/mm3 (0.0-0.1); Basophils Percent Auto 0.4 % (0.2-1.2); Eosinophils Percent Auto 0.1 % (0-4.4); Hematocrit 34.4 % (42.0-52.0); Hemoglobin 11.5 g/dL (14.0-18.0); Immature Granulocyte Absolute 0.09 K/mm3 (0.00-0.031); Immature Granulocyte Percent A 0.6 % (0-0.5); Lymphocytes Absolute Auto 0.45 K/mm3 (0.9-3.2); Lymphocytes Percent Auto 2.9 % (18.3-44.2); Mean Corpuscular HGB Conc 33.4 g/dl (32-36); Mean Corpuscular Hemoglobin 31.3 pg (26-34); Mean Corpuscular Volume 93.5 fl (80-100); Mean Platelet Volume 9.6 fl (7.4-10.4); Monocytes Absolute Auto 1.4 K/mm3 (0.1-0.6); Monocytes Percent Auto 8.8 % (2.6-8.5); Neutrophils Absolute Auto 13.3 K/mm3 (1.3-6.7); Neutrophils Percent Auto 87.2 % (45.5-73.1); Platelet Count Result 295 k/mm3 (150-375); Red Blood Count 3.68 M/mm3 (4.6-6.20); Red Cell Distribution Width 12.7 % (11.5-14.5); White Blood Count 15.3 K/mm3 (4.5-10.0)
[2021-11-14] MEDS: metroNIDAZOLE 500 MG/ISO 100ML 500 MG/100 ML BAG 100 MG IVPB ×3 (06:40→20:47)
[2021-11-14 06:44] LABS: Anion Gap 6 mmol/L (8-16); Blood Urea Nitrogen 27 mg/dL (9-20); Calcium 7.9 mg/dL (8.4-10.2); Carbon Dioxide 25 mmol/L (22-30); Chloride 103 mmol/L (98-107); Estimated CRCL calculation 75 ml/min; Estimated Glomerular Filt Rate > 60; Glucose 128 mg/dL (65-110); Magnesium 2.1 mg/dL (1.6-2.3); Potassium 3.3 mmol/L (3.4-5.0); Sodium 134 mmol/L (137-145)
[2021-11-14 07:13] LABS: CRP 30.5 mg/dL (<1.0)
[2021-11-14] MEDS: PANTOPRAZOLE SODIUM IV 40 MG VIAL IV PUSH ×2 (08:49→20:50)
[2021-11-14] MEDS: POTASSIUM CHLORIDE 20 MEQ TABLET 40 MEQ PO (09:55)
--- NOTE | 2021-11-14 10:54 | PM.PNGS ---
Progress Note: A&P Assessment and Plan (1) Diverticulitis of large intestine with abscess: Qualifiers: Diverticulitis bleeding: unspecified bleeding status Qualified Code(s): K57.20 - Diverticulitis of large intestine with perforation and abscess without bleeding Code(s): K57.20 - Diverticulitis of large intestine with perforation and abscess without bleeding Status: Acute Assessment and Plan: Patient had multiple bowel movements overnight and early this morning, with improvement in his abdominal pain and bloating. He had a low grade temp 100.1F, but his WBC count is down to 15,000 today. Showing some signs of clinical improvement. Patient is still wanting to avoid surgery, had a discussion with Dr. Phelps about this yesterday morning. RLQ Perc drain had 500 cc output yesterday and 20 cc overnight, still draining a small amount today. LLQ perc drain with no output since 11/12. Continue to monitor output. May be able to consider removing the LLQ perc drain prior to discharge if he continues to improve. Will advance to full liquids today. Continue Miralax BID. No longer on IV fluids and his edema has improved after the one time dose of IV Lasix yesterday. Jeremy. lower extremity venous dopper negative for DVT. Continue IV Zosyn and Flagyl. Encouraged patient to continue ambulating in the halls at least three times a day and more if tolerated. Repeat labs again tomorrow. Still awaiting possible transfer to three other facilities that have accepted the patient ([facility], [facility], and [facility]) - no beds available yet at this time. Additional Plan I have discussed the patient's case and plan of care with Dr. Phelps. Potassium up to 3.3 today but still low, he was given 40 meq KCL this morning by the Hospitalist. Repeat labs tomorrow and continue to monitor. Magnesium was normal. Subjective Subjective Date/Time Seen: 11/14/21 10:54 Patient reports: no new complaints, feels better, tolerating liquids well, voiding w/o difficulty, flatus, bowel movement, diarrhea and fever (Temp of a 100.1? F this morning) Interval history: Patient seen and examined. He reports having a better night last night and being able to get a few hours of sleep. He reports his abdominal discomfort and bloating has improved following multiple bowel movements overnight. He reports having 2 large bowel movements early this morning and about 3 other small liquid bowel movements as well. He reports lots of belching. He has been walking the halls frequently, even throughout the night. He denies any nausea or vomiting. He is only taking in about half of his tray or a little more, just taking it slow with his liquids but tolerating well. He reports the swelling in his bilateral lower legs has improved, but he still feels swollen in his thighs bilaterally and scrotum. No other complaints at this time. Review of Systems Review of Systems: All systems reviewed & are unremarkable except as noted in HPI and below Constitutional: Constitutional: Reports as per HPI and Reports no additional constitutional complaints Cardiovascular: Cardiovascular: Reports no additional cardiovascular complaints, Denies chest pain and Denies leg edema Respiratory: Respiratory: Reports no additional respiratory complaints, Denies cough and Denies dyspnea Gastrointestinal: Gastrointestinal: Reports as per HPI and Reports no additional gastrointestinal complaints Neurologic: Reports system reviewed and no additional complaints, except as documented, Denies Abnormal speech present and Denies focal weakness Exam Const: General: comfortable, no acute distress and awake Orientation/consciousness: patient oriented x3 GI: Inspection: distended GI Palp: Yes Firmness to palpation present (GI), Yes Tenderness to palpation present (GI) (very mild tenderness with deep palpation of epigastric area and RLQ), No Guarding due to palpation present (GI) and No Rebound tenderness present Percussio
[2021-11-14] MEDS: IBUPROFEN 600 MG TABLET PO ×2 (12:18→18:32)
[2021-11-14 13:46] VITALS: BP 136/93; PULSE 103; RESP 16; TEMP 36.6; O2SAT 94
[2021-11-14 14:20] VITALS: TEMP 36.9
--- NOTE | 2021-11-14 16:36 | P.PNIM_ITS ---
Progress Note: A&P Assessment and Plan (1) Diverticulitis of large intestine with abscess: Qualifiers: Diverticulitis bleeding: unspecified bleeding status Qualified Code(s): K57.20 - Diverticulitis of large intestine with perforation and abscess without bleeding Code(s): K57.20 - Diverticulitis of large intestine with perforation and abscess without bleeding Status: Acute Assessment and Plan: Presented with lower abdominal pain and nausea * CT on presentation showed ruptured sigmoid diverticulitis with not yet organized appearing collection of gas and feculent material peripheral to a large ruptured sigmoid diverticulum * Appreciate general surgery consultation * CT abdomen/pelvis on 11/10 showed worsened perforated sigmoid diverticulitis with large abscess extending from sigmoid colon to liver via right paracolic gutter as well as abscess of the left paracolic gutter * He underwent percutaneous drainage per IR on 11/10 * Abscess fluid cultures collected with growth of Bacteroides and E coli. E coli susceptible to Zosyn. Bacteroides susceptibility not performed * Monitor drain output * Continue IV Zosyn and metronidazole * NG tube removed 11/13. Continue with full liquid diet. IV fluids discontinued as patient is tolerating p.o. intake and has been adequately rehydrated * Patient is on wait list at [facility], [facility], and [facility] for transfer to general surgery/Colorectal surgery. Awaiting bed availability (2) Septicemia: Code(s): A41.9 - Sepsis, unspecified organism Status: Acute Assessment and Plan: Patient with Bacteroides bacteremia, now meeting criteria for sepsis (11/13) with increased leukocytosis, tachycardia, tachypnea. Source of infection is diverticulitis with abscess * 1 of 2 blood cultures with growth of Bacteroides vulgatus (Bacteroides also grown on abscess culture) * Routine susceptibility not performed * Continue IV Zosyn * Normal lactic acid levels and maintaining stable blood pressure. Elevated temp at 100.1? today * Mild improvement in CRP today (3) History of lung cancer: Code(s): Z85.118 - Personal history of other malignant neoplasm of bronchus and lung Status: Inactive Assessment and Plan: Patient with history of lung cancer s/p lobectomy in 2007 * No ongoing issues (4) Hypokalemia: Code(s): E87.6 - Hypokalemia Status: Acute Assessment and Plan: Potassium has been low due to NPO diet and has been supplemented * Potassium 3.3 today * Administer 40 mEq p.o. KCl * Monitor BMP (5) Abnormal chest x-ray: Code(s): R93.89 - Abnormal findings on diagnostic imaging of other specified body structures Status: Acute Assessment and Plan: Patient complained of cough 11/11 which has resolved * CXR showed bibasilar airspace disease concerning for atelectasis vs pneumonia * Favor atelectasis. Patient does not have signs or symptoms to suggest acute respiratory infection * Continue incentive spirometry * Monitor respiratory status closely * Maintaining adequate O2 sats on room air * No evidence of pulmonary edema. Monitor volume status closely (6) Lower extremity edema: Code(s): R60.0 - Localized edema Status: Acute Assessment and Plan: Patient with dependent lower extremity edema * Likely due to decreased activity and need for IV fluids * Venous Doppler negative for DVT * Compression stockings * Elevate extremities * Encourage ambulation * IV fluids discontinued 11/13 * Administer 1 time dose IV Lasix 20 mg
--- NOTE | 2021-11-14 16:36 | PM.IMPN ---
Progress Note: A&P Assessment and Plan (1) Diverticulitis of large intestine with abscess: Qualifiers: Diverticulitis bleeding: unspecified bleeding status Qualified Code(s): K57.20 - Diverticulitis of large intestine with perforation and abscess without bleeding Code(s): K57.20 - Diverticulitis of large intestine with perforation and abscess without bleeding Status: Acute Assessment and Plan: Presented with lower abdominal pain and nausea CT on presentation showed ruptured sigmoid diverticulitis with not yet organized appearing collection of gas and feculent material peripheral to a large ruptured sigmoid diverticulum Appreciate general surgery consultation CT abdomen/pelvis on 11/10 showed worsened perforated sigmoid diverticulitis with large abscess extending from sigmoid colon to liver via right paracolic gutter as well as abscess of the left paracolic gutter He underwent percutaneous drainage per IR on 11/10 Abscess fluid cultures collected with growth of Bacteroides and E coli. E coli susceptible to Zosyn. Bacteroides susceptibility not performed Monitor drain output Continue IV Zosyn and metronidazole NG tube removed 11/13. Continue with full liquid diet. IV fluids discontinued as patient is tolerating p.o. intake and has been adequately rehydrated Patient is on wait list at [facility], [facility], and [facility] for transfer to general surgery/Colorectal surgery. Awaiting bed availability (2) Septicemia: Code(s): A41.9 - Sepsis, unspecified organism Status: Acute Assessment and Plan: Patient with Bacteroides bacteremia, now meeting criteria for sepsis (11/13) with increased leukocytosis, tachycardia, tachypnea. Source of infection is diverticulitis with abscess 1 of 2 blood cultures with growth of Bacteroides vulgatus (Bacteroides also grown on abscess culture) Routine susceptibility not performed Continue IV Zosyn Normal lactic acid levels and maintaining stable blood pressure. Elevated temp at 100.1? today Mild improvement in CRP today (3) History of lung cancer: Code(s): Z85.118 - Personal history of other malignant neoplasm of bronchus and lung Status: Inactive Assessment and Plan: Patient with history of lung cancer s/p lobectomy in 2007 No ongoing issues (4) Hypokalemia: Code(s): E87.6 - Hypokalemia Status: Acute Assessment and Plan: Potassium has been low due to NPO diet and has been supplemented Potassium 3.3 today Administer 40 mEq p.o. KCl Monitor BMP (5) Abnormal chest x-ray: Code(s): R93.89 - Abnormal findings on diagnostic imaging of other specified body structures Status: Acute Assessment and Plan: Patient complained of cough 11/11 which has resolved CXR showed bibasilar airspace disease concerning for atelectasis vs pneumonia Favor atelectasis. Patient does not have signs or symptoms to suggest acute respiratory infection Continue incentive spirometry Monitor respiratory status closely Maintaining adequate O2 sats on room air No evidence of pulmonary edema. Monitor volume status closely (6) Lower extremity edema: Code(s): R60.0 - Localized edema Status: Acute Assessment and Plan: Patient with dependent lower extremity edema Likely due to decreased activity and need for IV fluids Venous Doppler negative for DVT Compression stockings Elevate extremities Encourage ambulation IV fluids discontinued 11/13 Administer 1 time dose IV Lasix 20 mg Subjective Date/time seen: 11/14/21 16:36 Interval history: Date of service: 11/14/2021 Geoffrey Cevallos is a 56-year-old male with a history of lung cancer s/p lobectomy who is seen in follow-up for diverticulitis with perforation and abscess. His is at the bedside. He feels fair today. This morning he had cream of wheat and did not tolerate this very well. He developed bloating and abdominal discomfort.
[2021-11-14] MEDS: FUROSEMIDE INJ 40 MG/4 ML VIAL 20 MG IV PUSH (17:19)
[2021-11-14] MEDS: BISACODYL 10 MG SUPPOSITORY RECTAL (17:22)
[2021-11-14] MEDS: MAG HYDROX/AL HYDROX/SIMETH 30 ML UDC PO (17:42)
[2021-11-14 21:47] VITALS: BP 125/79; PULSE 92; RESP 18; TEMP 36.7; O2SAT 93
--- NOTE | 2021-11-15 00:10 | PC.NURSE ---
[facility] here to transport to [facility], IV and drains intact, all belongings in hand, paperwork for hosp with ambulance staff, Pt reports he will notify his of transfer.
--- NOTE | 2021-11-22 07:21 | PM.TDS ---
Transfer Discharge Sum: Prov Provider Date of admission: 11/05/21 23:59 Primary care physician: Pipo Colon, MD Admitting clinician: Amol Kennedy MD Consults: 11/06/21 Consult to Physician Routine Comment: Consulting Provider: Zach Thakur crew caller/MD group to consult: Reason for consultation: surgical services Has provider been notified: Yes 11/06/21 00:00 Consult to Physician Routine Comment: Consulting Provider: Zach Thakur Reason for consultation: diverticular abscess Has provider been notified: Yes 11/09/21 Consult to Dietitian Routine Reason for Consult:: Please provide instruction/ literature on low-fiber diet (times 1-2 weeks) then high-fiber diet for diverticulosis. DS: Admitting Diagnosis Discharge Date 11/15/21 Admitting Diagnosis Diverticulitis of large intestine with abscess DS: Discharge Diagnosis Discharge Diagnosis (1) Diverticulitis of large intestine with abscess: Qualifiers: Diverticulitis bleeding: unspecified bleeding status Qualified Code(s): K57.20 - Diverticulitis of large intestine with perforation and abscess without bleeding Code(s): K57.20 - Diverticulitis of large intestine with perforation and abscess without bleeding Status: Acute Assessment and Plan: Presented with lower abdominal pain and nausea CT on presentation showed ruptured sigmoid diverticulitis with not yet organized appearing collection of gas and feculent material peripheral to a large ruptured sigmoid diverticulum Appreciate general surgery consultation CT abdomen/pelvis on 11/10 showed worsened perforated sigmoid diverticulitis with large abscess extending from sigmoid colon to liver via right paracolic gutter as well as abscess of the left paracolic gutter He underwent percutaneous drainage per IR on 11/10 Abscess fluid cultures collected with growth of Bacteroides and E coli. E coli susceptible to Zosyn. Bacteroides susceptibility not performed Drain output monitored Continue IV Zosyn and metronidazole NG tube removed 11/13. Continued on full liquid diet. IV fluids discontinued as patient was tolerating p.o. intake and was adequately rehydrated Patient had been on wait list at [facility], [facility], and [facility] for transfer to general surgery/Colorectal surgery and was awaiting bed availability since 11/11/2021. On 11/15/2021 at 0010 the patient was transferred to [facility] in hemodynamically stable condition. (2) Septicemia: Code(s): A41.9 - Sepsis, unspecified organism Status: Acute Assessment and Plan: Patient with Bacteroides bacteremia, now meeting criteria for sepsis (11/13) with increased leukocytosis, tachycardia, tachypnea. Source of infection is diverticulitis with abscess 1 of 2 blood cultures with growth of Bacteroides vulgatus (Bacteroides also grown on abscess culture) Routine susceptibility not performed Continue IV Zosyn Normal lactic acid levels and maintained stable blood pressure Mild improvement in CRP (3) History of lung cancer: Code(s): Z85.118 - Personal history of other malignant neoplasm of bronchus and lung Status: Inactive Assessment and Plan: Patient with history of lung cancer s/p lobectomy in 2007 No ongoing issues (4) Hypokalemia: Code(s): E87.6 - Hypokalemia Status: Acute Assessment and Plan: Potassium has been low due to NPO diet and has been supplemented Potassium was 3.3 on day of transfer and patient received 40 mEq p.o. KCl Monitor BMP (5) Abnormal chest x-ray: Code(s): R93.89 - Abnormal findings on diagnostic imaging of other specified body structures Status: Acute Assessment and Plan: Patient complained of cough 11/11 which has resolved CXR showed bibasilar airspace disease concerning for atelectasis vs pneumonia Favor atelectasis. Patient does not have signs or symptoms to sugges
== END 2021-11-15 00:29 | disposition other institution (70) | DRG 391 ==
LOC: ANHED 23:43 → ANH3MEDSUR 11-06 00:05
PROVIDERS: Emergency Medicine; Nurse Practitioner Family; Physician Assistant; Surgery; Admitting Provider Internal Medicine; Emergency Provider Nurse Practitioner Family; PCP Internal Medicine; Visit Provider Internal Medicine
DX: K57.20 Diverticulitis of large intestine with perforation and abscess without bleeding (principal); A41.9 Sepsis, unspecified organism; K56.7 Ileus, unspecified; Z85.118 Personal history of other malignant neoplasm of bronchus and lung; Z20.822 Contact with and (suspected) exposure to COVID-19; Z90.2 Acquired absence of lung [part of]; F12.90 Cannabis use, unspecified, uncomplicated; R63.0 Anorexia; E87.6 Hypokalemia; R93.89 Abnormal findings on diagnostic imaging of other specified body structures; B96.20 Unspecified Escherichia coli [E. coli] as the cause of diseases classified elsewhere; R00.0 Tachycardia, unspecified; Z75.1 Person awaiting admission to adequate facility elsewhere
CPT/HCPCS: 36415; 71045; 74018; 74177; 75989; 80048; 80053; 80076; 81001; 83605; 83690; 83735; 85025; 85027; 85049; 85055; 85610; 85730; 86140; 87040; 87070; 87075; 87076; 87077; 87186; 87205; 87426; 93970; 96361; 96372; 96374; 96375; 99285; A9270; C1729; C1769; C9113; C9803; J0131; J0500; J1170; J1741; J1885; J1940; J2060; J2270; J2405; J2543; J3480; J7030; J7040; Q9967

== ENCOUNTER 2024-01-13 09:48 | Emergency (ER) | payer OTHER, SELFPAY ==
--- NOTE | ~2024-01-13 | XR_ITS ---
XR knee RT 3V DATE: 01/13/2024 10:35 INDICATION: Right knee pain TECHNIQUE: [place] and standing AP and lateral views COMPARISON: None FINDINGS: There is slight periarticular spurring of the medial tibial plateau. Medial and lateral com partment as well as patellofemoral joint spaces appear well preserved. No fracture, dislocation, periosteal reaction or bone destruction, radiopaque intra-articular loose b caden or chondrocalcinosis. IMPRESSION: Minimal osteoarthritis of the medial compartment Reviewed, dictated and finalized at location B.
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
[2024-01-13] MEDS: TETANUS,DIPHTHERIA,AC PERTUSSIS ADULT (0.5 ML) BOOSTRIX IM (10:31)
[2024-01-13 10:33] VITALS: BP 132/97; PULSE 56; RESP 18; TEMP 37; O2SAT 99
== END 2024-01-13 10:53 | disposition home or self-care (01) ==
PROVIDERS: Emergency Provider Nurse Practitioner; PCP Family Medicine
DX: S80.01XA Contusion of right knee, initial encounter (principal); S81.011A Laceration without foreign body, right knee, initial encounter; V18.9XXA Unspecified pedal cyclist injured in noncollision transport accident in traffic accident, initial encounter; Z23 Encounter for immunization; Z85.118 Personal history of other malignant neoplasm of bronchus and lung; Z90.2 Acquired absence of lung [part of]; F12.90 Cannabis use, unspecified, uncomplicated
CPT/HCPCS: 73562; 90471; 90715; 99213; G0463